=== PATIENT | male | born 1970 | race Caucasian/White ===

== ENCOUNTER 2020-09-09 08:41 | Outpatient (REF) | payer OTHER, SELFPAY ==
[2020-09-09 10:00] LABS: Alanine Aminotransferase 45 U/L (0-40); Albumin Level 4.4 g/dL (3.5-5.0); Alkaline Phosphatase 64 U/L (39-117); Anion Gap 11 (12-20); Aspartate Amino Transferase 31 U/L (5-37); Bilirubin Total 0.6 mg/dL (0.0-1.0); Blood Urea Nitrogen 15 mg/dL (9-16); Calcium 9.6 mg/dL (8.4-10.2); Carbon Dioxide 30 mmol/L (22-29); Chloride 101 mmol/L (96-108); Cholesterol 212 mg/dL; Estimated Glomerular Filt Rate > 60; Glucose Fasting 165 mg/dL (60-99); HDL Cholesterol 40 mg/dL; LDL Cholesterol Calculated 124 mg/dl; Potassium 4.4 mmol/L (3.3-5.1); Sodium 138 mmol/L (135-145); Total Protein 7.6 g/dL (6.5-8.0); Triglycerides 242 mg/dL
[2020-09-09 10:26] LABS: Creatinine Urine 141.49 mg/dL; Microalbum/Creatinine Ratio Ur 4.9 ug/mg cr
[2020-09-19 12:36] LABS: Vitamin D 25-OH, D2 <4 ng/mL; Vitamin D 25-OH, D3 19 ng/mL; Vitamin D 25-OH, Total 19 ng/mL (30-100)
== END 2020-09-09 08:42 | disposition home or self-care (01) ==
LOC: HO.LAB 08:41
PROVIDERS: PCP Internal Medicine; Visit Provider Internal Medicine
DX: E11.65 Type 2 diabetes mellitus with hyperglycemia (principal); E11.9 Type 2 diabetes mellitus without complications; E55.9 Vitamin D deficiency, unspecified
CPT/HCPCS: 36415; 80053; 80061; 82043; 82306

== ENCOUNTER 2021-05-30 07:49 | Outpatient (REF) | payer OTHER, SELFPAY ==
[2021-05-30 08:06] LABS: MANUAL DIFF FLAG NO
[2021-05-30 08:39] LABS: Basophils Percent Auto 0.2 % (0-2); Eosinophils Absolute Auto 0.4 X10*3/uL (0.0-0.4); Eosinophils Percent Auto 6.3 % (0-4); Hematocrit 42.7 % (42.0-52.0); Hemoglobin 13.2 g/dl (14.0-18.0); Imm Gran Abs Auto 0.02 X10*3/uL (0.00-0.03); Imm Gran Pct Auto 0.3 % (0.0-0.4); Lymphocytes Absolute Auto 1.9 X10*3/uL (1.2-4.9); Lymphocytes Percent Auto 30.3 % (20-40); Mean Corpuscular HGB Conc 30.9 g/dl (31.0-36.0); Mean Corpuscular Volume 80.9 fL (80.0-98.0); Mean Platelet Volume 10.1 fL (9.4-12.4); Monocytes Absolute Auto 0.4 X10*3/uL (0.1-1.2); Monocytes Percent Auto 6.9 % (2-11); Neutrophils Absolute Auto 3.6 x10*3/uL (2.0-8.3); Platelet Count 255 X10*3/uL (160-400); Red Blood Count 5.28 X10*6/uL (4.60-5.80); Red Cell Distribution Width 13.7 % (11.0-16.0); White Blood Count 6.3 X10*3/uL (4.8-10.8)
[2021-05-30 08:57] LABS: Estimated Average Glucose 154 mg/dL
[2021-05-30 09:06] LABS: Alanine Aminotransferase 24 U/L (0-40); Albumin Level 4.4 g/dL (3.5-5.0); Alkaline Phosphatase 64 U/L (39-117); Anion Gap 14 (12-20); Aspartate Amino Transferase 22 U/L (5-37); Bilirubin Total 0.5 mg/dL (0.0-1.0); Blood Urea Nitrogen 13 mg/dL (9-16); Calcium 9.6 mg/dL (8.4-10.2); Carbon Dioxide 26 mmol/L (22-29); Chloride 103 mmol/L (96-108); Cholesterol 144 mg/dL; Estimated Glomerular Filt Rate > 60; Glucose Fasting 161 mg/dL (60-99); HDL Cholesterol 38 mg/dL; LDL Cholesterol Calculated 83 mg/dl; Sodium 139 mmol/L (135-145); Total Protein 7.5 g/dL (6.5-8.0); Triglycerides 118 mg/dL
[2021-05-30 09:08] LABS: Creatinine Urine 295.68 mg/dL
[2021-06-02 15:01] LABS: Vitamin D 25-OH, D2 <4 ng/mL; Vitamin D 25-OH, D3 19 ng/mL; Vitamin D 25-OH, Total 19 ng/mL (30-100)
== END 2021-05-30 07:50 | disposition home or self-care (01) ==
LOC: HO.LAB 07:49
PROVIDERS: Visit Provider Internal Medicine
DX: D64.9 Anemia, unspecified (principal); K21.9 Gastro-esophageal reflux disease without esophagitis; E11.40 Type 2 diabetes mellitus with diabetic neuropathy, unspecified; E11.65 Type 2 diabetes mellitus with hyperglycemia; E55.9 Vitamin D deficiency, unspecified; E78.5 Hyperlipidemia, unspecified
CPT/HCPCS: 36415; 80053; 80061; 82043; 82306; 83036; 85025

== ENCOUNTER 2022-03-11 09:22 | Outpatient (REF) | payer OTHER, SELFPAY ==
[2022-03-11 10:55] LABS: Alanine Aminotransferase 37 U/L (0-40); Albumin Level 4.4 g/dL (3.5-5.0); Alkaline Phosphatase 57 U/L (39-117); Anion Gap 15 (12-20); Aspartate Amino Transferase 35 U/L (5-37); Bilirubin Total 0.5 mg/dL (0.0-1.0); Blood Urea Nitrogen 15 mg/dL (9-16); Calcium 9.2 mg/dL (8.4-10.2); Carbon Dioxide 26 mmol/L (22-29); Chloride 102 mmol/L (96-108); Cholesterol 140 mg/dL; Estimated Glomerular Filt Rate > 60; Glucose Fasting 129 mg/dL (60-99); HDL Cholesterol 36 mg/dL; LDL Cholesterol Calculated 83 mg/dl; Potassium 4.1 mmol/L (3.3-5.1); Sodium 139 mmol/L (135-145); Total Protein 7.5 g/dL (6.5-8.0); Triglycerides 106 mg/dL
[2022-03-11 10:56] LABS: Creatinine Urine 148.42 mg/dL; Microalbum/Creatinine Ratio Ur 5.3 ug/mg cr
[2022-03-11 11:18] LABS: Vitamin D 25-OH Total 22.9 ng/mL (>30)
== END 2022-03-11 09:23 | disposition home or self-care (01) ==
LOC: HO.LAB 09:22
PROVIDERS: PCP Internal Medicine; Visit Provider Internal Medicine
DX: E11.65 Type 2 diabetes mellitus with hyperglycemia (principal); E78.5 Hyperlipidemia, unspecified; E55.9 Vitamin D deficiency, unspecified
CPT/HCPCS: 36415; 80053; 80061; 82043; 82306

== ENCOUNTER 2022-03-22 09:28 | Outpatient (REF) | payer OTHER, SELFPAY ==
--- NOTE | ~2022-03-22 | US_ITS ---
EXAMINATION: US ABDOMEN LIMITED CLINICAL INFORMATION: Umbilical hernia without obstruction or gangrene. COMPARISON: None TECHNIQUE: Real-time imaging of the umbilical region and the right and left upper quadrants of the abdomen in the areas of palpable abnormality indicated by the patient. FINDINGS: There is a question of a small umbilical hernia containing fat. This is solid and hypoechoic and measures 10 x 10 x 6 mm. There are other hyperechoic solid areas in the right upper and left upper abdominal wall indicated as palpable abnormalities by the patient questionable for small lipomas. Largest measures 1.2 x 1.1 x 0.6 cm in the left upper quadrant. US/US abdomen limited IMPRESSION: Question small umbilical hernia containing fat. Additional small hyperechoic soft tissue lesions in the bilateral upper abdominal wall probably representing small lipomas.
== END 2022-03-22 09:29 | disposition home or self-care (01) ==
LOC: HO.US 09:28
PROVIDERS: Visit Provider Internal Medicine
DX: K42.9 Umbilical hernia without obstruction or gangrene (principal)
CPT/HCPCS: 76705

== ENCOUNTER 2022-09-22 09:04 | Outpatient (REF) | payer OTHER, SELFPAY ==
[2022-09-22 09:21] LABS: MANUAL DIFF FLAG NO
[2022-09-22 09:32] LABS: Basophils Percent Auto 0.6 % (0-2); Eosinophils Absolute Auto 0.3 X10*3/uL (0.0-0.4); Eosinophils Percent Auto 3.7 % (0-4); Hematocrit 42.5 % (42.0-52.0); Hemoglobin 13.2 g/dl (14.0-18.0); Imm Gran Abs Auto 0.01 X10*3/uL (0.00-0.03); Imm Gran Pct Auto 0.1 % (0.0-0.4); Lymphocytes Absolute Auto 2.4 X10*3/uL (1.2-4.9); Lymphocytes Percent Auto 35.8 % (20-40); Mean Corpuscular HGB Conc 31.1 g/dl (31.0-36.0); Mean Corpuscular Hemoglobin 24.6 pg (27.0-33.0); Mean Corpuscular Volume 79.3 fL (80.0-98.0); Mean Platelet Volume 9.8 fL (9.4-12.4); Monocytes Absolute Auto 0.6 X10*3/uL (0.1-1.2); Monocytes Percent Auto 8.2 % (2-11); Neutrophils Absolute Auto 3.5 x10*3/uL (2.0-8.3); Neutrophils Percent Auto 51.6 % (45-73); Platelet Count 242 X10*3/uL (160-400); Red Blood Count 5.36 X10*6/uL (4.60-5.80); Red Cell Distribution Width 13.8 % (11.0-16.0); White Blood Count 6.7 X10*3/uL (4.8-10.8)
[2022-09-22 09:58] LABS: Alanine Aminotransferase 31 U/L (0-40); Albumin Level 4.4 g/dL (3.5-5.0); Alkaline Phosphatase 57 U/L (39-117); Anion Gap 12 (12-20); Aspartate Amino Transferase 30 U/L (5-37); Bilirubin Total 0.8 mg/dL (0.0-1.0); Blood Urea Nitrogen 15 mg/dL (9-16); Calcium 9.5 mg/dL (8.4-10.2); Carbon Dioxide 29 mmol/L (22-29); Chloride 103 mmol/L (96-108); Cholesterol 127 mg/dL; Estimated Glomerular Filt Rate > 60; Glucose Fasting 139 mg/dL (60-99); HDL Cholesterol 36 mg/dL; Iron 80 mcg/dL (45-160); LDL Cholesterol Calculated 71 mg/dl; Percent Iron Saturation 29 % (15-50); Potassium 4.4 mmol/L (3.3-5.1); Sodium 140 mmol/L (135-145); Total Iron Binding Capacity 276 mcg/dL (228-428); Total Protein 7.4 g/dL (6.5-8.0); Triglycerides 101 mg/dL; Unsaturated Iron Binding 196 ug/dL
[2022-09-22 12:03] LABS: Microalbum/Creatinine Ratio Ur 4.8 ug/mg cr
[2022-09-28 23:44] LABS: Vitamin D 25-OH, D2 <4 ng/mL; Vitamin D 25-OH, D3 19 ng/mL; Vitamin D 25-OH, Total 19 ng/mL (30-100)
== END 2022-09-22 09:05 | disposition home or self-care (01) ==
LOC: HO.LAB 09:04
PROVIDERS: PCP Internal Medicine; Visit Provider Internal Medicine
DX: E11.9 Type 2 diabetes mellitus without complications (principal); E55.9 Vitamin D deficiency, unspecified; E78.2 Mixed hyperlipidemia; D64.9 Anemia, unspecified
CPT/HCPCS: 36415; 80053; 80061; 82043; 82306; 83540; 85025

== ENCOUNTER 2023-02-28 14:47 | Outpatient (AMB) | payer OTHER, SELFPAY ==
--- NOTE | 2023-02-28 15:05 | MHC.PC.OV ---
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 Required: No Accompanied by: Self / Same As Patient Allergies atorvastatin Allergy (Intermediate, Verified 02/28/23 15:39) elevated liver enzymes Medication List - Last Reconciled 02/28/23 by Yuly Cueva MD amlodipine 5 mg PO DAILY 90 days blood pressure monitor As directed blood sugar diagnostic (FreeStyle Lite Strips) Use 1 test strip once a day blood-glucose meter (FreeStyle Lite Meter kit) As directed cholecalciferol (vitamin D3) 50 mcg PO DAILY clotrimazole-betamethasone 1-0.05 % 1 appl topical BID PRN 30 days ezetimibe 10 mg PO DAILY 90 days losartan-hydrochlorothiazide 100-12.5 mg 1 tab PO DAILY 90 days metformin 1,000 mg PO BID 90 days omeprazole 40 mg PO DAILY rosuvastatin 40 mg PO DAILY 90 days sitagliptin phosphate 100 mg PO DAILY 30 days Ventolin HFA 90 mcg/actuation (albuterol sulfate) 1 inh inhalation QID PRN 30 days NS Tobacco use date assessed: 10/25/22 Dental Screening Dental Screen Date: 02/28/23 Did you have a dental visit in the last 12 months?: No Did you have a dental problem in the last 6 months where you did not have access to dental care?: No Was dental information given to patient?: Patient has dentist HPI HPI Comments History of Present Illness Details This is a 52-year-old male with diabetes mellitus type 2, hypertension, mixed hyperlipidemia, GERD and mild asthma that comes today for follow-up on his conditions. A1c elevated and he admits not been compliant with medications. Blood pressure stable. Lipid panel will be order and his LDL goal should be less than 70. GERD stable with PPIs. Use rescue inhaler about once a month. He is obese with a BMI of 35 and was advised to diet and exercise to reach BMI goal less than 30. [facility] Medical History Anxiety Diabetes GERD (gastroesophageal reflux disease) HTN (hypertension) Hypovitaminosis D Mild asthma Mixed hyperlipidemia Pain, elbow Seasonal allergies Surgical History History of third molar tooth extraction Family History Father Diabetes Hypertension Mother Hypertension Diabetes Brother Cancer Social History Housing: Apartment Alcohol intake: former Year quit: 2001 Patient Tobacco Use Status: Former Tobacco user Tobacco use type: Cigarette e-Cigarette/Vaping Use: Never Used Second Hand Smoke Exposure: No Substance Use Type: Former Substance User service: No Current occupational status: employed Current occupational exposures/hazards: No Cognitive needs: No Hearing needs: No Vision needs: Yes Questionnaire Thrive Questionnaire Date Thrive assessed: 10/25/22 SCHUYLER-7 AMB Questionnaire SCHUYLER-7 Date SCHUYLER - 7 assessed: 10/25/22 Source: Developed by Drs. Rory Brown, Syeda Herron, Sher Bonilla and colleagues, with an educational gagan from [employer]. Review of Systems Const All systems reviewed & are unremarkable except as noted in HPI and below Eyes Reports no additional complaints, Denies change in vision and Denies other visual disturbances Card Denies chest pain at rest, Denies chest pain with activity, Denies edema, Denies irregular heart rhythm, Denies claudication, Denies dyspnea, Denies dyspnea on exertion, Denies orthopnea, Denies paroxysmal nocturnal dyspnea and Denies slow heart rate Resp Denies cough, Denies dyspnea and Denies dyspnea on exertion GI Denies abdominal pain, Denies change in bowel habits, Denies excessive flatus, Denies nausea and Denies vomiting Denies urinary hesitancy, Denies urinary incontinence and Denies urinary urgency Musc Denies abnormal gait, Denies atrophy, Denies deformity and Denies limited range of motion Skin/Breast Denies bleeding lesions, Denies changing lesions and Denies rash Neuro Denies abnormal gait and Denies lack of coordination Physical exam (Primary Care) Vital Signs: Last Vital Signs BP 130/80 02/28/23 15:22 BMI result Body Mass Index 35.0 Tobacco/Smoking Status: Tobacco use Status Tobacco use date assessed 10/25/22 02/28/23 15:06 Patient Tobacco Use Status Former Tobacco user 02/28/23 15:06 Tobacco use type Cigarette 02/28/23 15:06 e-Cigarette/Vaping Use Never Used 02/28/23 15:06 Thrive Assessment: Date of Thrive Assessment Date Thrive assessed 10/25/22 02/28/23 15:06 Eyes General: appearance normal, both eyes and all related structures Eyelids: Yes eyelids normal Conjunctivae: conjunctivae normal Neck Neck: Yes normal visual inspection and Yes supple Resp Effort & Inspection: normal respiratory effort Auscultation: clear to auscultation bilaterally Cardio Jugular venous distension: no JVD Rate: regular rate Rhythm: regular rhythm Heart sounds: S1 normal heart sound present and S2 normal heart sound present Extrem General: Yes full ROM Results AMB Hemoglobin A1c AMB Hemoglobin A1c 8.4 % Last Edit by HIRO Batista on 02/28/23 15:30 Results Reviewed Results Reviewed: Laboratory Last Values Hgb A1c (Clinic) 8.4 % (4.0-6.0) H 02/28/23 15:04 Assessment and Plan Assessment & Plan (1) Diabetes: Comment: fbs usually 150-170 Code(s): E11.9 - Type 2 diabetes mellitus without complications Qualifiers: Diabetes mellitus type: type 2 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 A1c goal is equal or less than 7%. (2) HTN (hypertension): Code(s): I10 - Essential (primary) hypertension Qualifiers: Hypertension type: essential hypertension Qualified Code(s): I10 - Essential (primary) hypertension Plan: Continue amlodipine and losartan-hydrochlorothiazide. Blood pressure goal is equal or less than 130/80. (3) Mixed hyperlipidemia: Code(s): E78.2 - Mixed hyperlipidemia Plan: Continue statins and Zetia. (4) Mild asthma: Code(s): J45.909 - Unspecified asthma, uncomplicated Qualifiers: Asthma persistence: persistent Asthma complication type: uncomplicated Qualified Code(s): J45.30 - Mild persistent asthma, uncomplicated Plan: Use rescue inhaler as needed. (5) GERD (gastroesophageal reflux disease): Code(s): K21.9 - Gastro-esophageal reflux disease without esophagitis Qualifiers: Esophagitis presence: esophagitis presence not specified Qualified Code(s): K21.9 - Gastro-esophageal reflux disease without esophagitis Plan: Continue PPIs. Orders: Orders Vitamin D 25-OH Total 5 Months E55.9 - Vitamin D deficiency, unspecified Lipid Panel 5 Months E78.5 - Hyperlipidemia, unspecified Microalbumin, Random (w Creat) 5 Months E11.9 - Type 2 diabetes mellitus without complications Comprehensive [place]. Panel Fast 5 Months E11.65 - Type 2 diabetes mellitus with hyperglycemia AMB Hemoglobin A1c Today E11.9 - Type 2 diabetes mellitus without complications Referrals Ophthalmology Referral E11.9 - Type 2 diabetes mellitus without complications Podiatry Referral E11.9 - Type 2 diabetes mellitus without complications Medications: New clotrimazole-betamethasone 1-0.05 % 1 appl topical BID 15 grams 1RF 2 weeks Coding Level of Care Code Est Pt Level 4 (94721) Diagnoses Diabetes E11.65 Diabetes mellitus type: type 2 Diabetes mellitus nursing home insulin use: without predatory animal exterminator use Diabetes mellitus complication status: with hyperglycemia HTN (hypertension) I10 Hypertension type: essential hypertension Mixed hyperlipidemia E78.2 Mild asthma J45.30 Asthma persistence: persistent Asthma complication type: uncomplicated GERD (gastroesophageal reflux disease) K21.9 Esophagitis presence: esophagitis presence not specified Time Spent (min) 24
[2023-02-28 15:22] VITALS: BP 130/80; BMI 35.0
== END 2023-02-28 15:45 | disposition home or self-care (01) ==
PROVIDERS: PCP Internal Medicine; Visit Provider Internal Medicine
DX: E11.65 Type 2 diabetes mellitus with hyperglycemia (principal); I10 Essential (primary) hypertension; J45.30 Mild persistent asthma, uncomplicated; K21.9 Gastro-esophageal reflux disease without esophagitis; E78.2 Mixed hyperlipidemia
CPT/HCPCS: 83036; 99214

== ENCOUNTER 2024-03-12 15:51 | Outpatient (AMB) | payer OTHER, SELFPAY ==
--- NOTE | 2024-03-12 15:53 | MHC.PC.OV ---
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 Accompanied by: Self / Same As Patient Allergies atorvastatin Allergy (Intermediate, Verified 03/12/24 16:18) elevated liver enzymes Medication List - Last Reconciled 03/12/24 by Yuly Cueva MD amlodipine 5 mg PO DAILY 90 days blood pressure monitor As directed blood sugar diagnostic (FreeStyle Lite Strips) Use 1 test strip once a day blood-glucose meter (FreeStyle Lite Meter kit) As directed cholecalciferol (vitamin D3) 50 mcg PO DAILY clotrimazole-betamethasone 1-0.05 % 1 appl topical BID PRN 30 days ezetimibe 10 mg PO DAILY 90 days losartan-hydrochlorothiazide 100-12.5 mg 1 tab PO DAILY 90 days metformin 1,000 mg PO BID 90 days omeprazole 40 mg PO DAILY rosuvastatin 40 mg PO DAILY 90 days sitagliptin phosphate 100 mg PO DAILY 30 days Ventolin HFA 90 mcg/actuation (albuterol sulfate) 1 inh inhalation QID PRN 30 days NS Tobacco use date assessed: 03/12/24 Dental Screening Dental Screen Date: 03/12/24 Did you have a dental visit in the last 12 months?: Yes Did you have a dental problem in the last 6 months where you did not have access to dental care?: No Was dental information given to patient?: Patient has dentist HPI HPI Comments History of Present Illness Details This is a 53-year-old male with diabetes mellitus type 2 that comes for his physical exam. A1c not on goal and I will change Rebecca Avalos. Has diabetic eye exam appointment next week. Has been referred to colonoscopy multiple times and no show and I will refer him again. No chest pain or shortness on breath. Has mild major depression and declines any treatment. [facility] Medical History (Updated 03/12/24 @ 18:49 by Yuly Cueva MD) Mixed hyperlipidemia Mild asthma Hypovitaminosis D Seasonal allergies Anxiety Pain, elbow GERD (gastroesophageal reflux disease) Diabetes HTN (hypertension) Surgical History History of third molar tooth extraction Family History Father Diabetes Hypertension Mother Hypertension Diabetes Brother Cancer Social History Housing: Apartment Alcohol intake: former Year quit: 2001 Patient Tobacco Use Status: Former Tobacco user Tobacco use type: Cigarette e-Cigarette/Vaping Use: Never Used Second Hand Smoke Exposure: No Substance Use Type: Former Substance User service: No Current occupational status: employed Current occupational exposures/hazards: No Cognitive needs: No Hearing needs: No Vision needs: Yes Questionnaire PHQ-9 Over the last 2 weeks, how often have you been bothered by any of the following problems? 1. Little interest or pleasure in doing things: several days 2. Feeling down, depressed, or hopeless: not at all 3. Trouble falling or staying asleep, or sleeping too much: not at all 4. Feeling tired or having little energy: nearly every day 5. Poor appetite or overeating: not at all 6. Feeling bad about yourself - or that you are a failure or have let yourself or your family down: not at all 7. Trouble concentrating on things, such as reading the newspaper or watching television: not at all 8. Moving or speaking so slowly that other people could have noticed. Or the opposite - being so fidgety or restless that you have been moving around a lot more than usual: not at all 9. Thoughts that you would be better off or of hurting yourself in some way: not at all Total score: 4 Depression Screening Interpretation: Positive Depression Screening Follow-up: Existing condition, Follow-up Visit Requested and Declines treatment Depression Screening Done: Yes 66472 - PHQ-9 Billing: Yes Source: Developed by Drs. Rory Brown, Syeda Herron, Sher Bonilla and colleagues, with an educational gagan from [employer]. Thrive Questionnaire Date Thrive assessed: 03/12/24 I am a: Patient What is your living situation today?: I have a steady place to live Within the past 12 months, did the food you bought not last and you didn't have the money to get more?: Never true Within the past 12 months, did you worry whether your food would run out before you got money to buy more?: Never true Do you have trouble paying for medicines?: I choose not to answer this question Do you have trouble getting transportation to medical appointments?: No Do you have trouble paying your heating and electricity bill?: No Do you have trouble taking care of your child, family member or friend?: No Do you have trouble with day-to-day activities such as bathing, preparing meals, shopping, managing finances, etc.?: No Are you currently unemployed and looking for a job?: No Are you interested in more education?: No Please select the resources that you would like help with: Paying for medicine Currently or been in a relationship where the following occur: No concerns reported THRIVE Score: 0 AUDIT C Alcohol Use Questionnaire (AUDIT-C) 1. How often do you have a drink containing alcohol?: Never Total Score: 0 Score Reviewed/Action Taken: No SCHUYLER-7 AMB Questionnaire SCHUYLER-7 Date SCHUYLER - 7 assessed: 03/12/24 Feeling nervous, anxious, or on edge: 1 = Several days Not being able to stop or control worryin = Several days Worrying too much about different things: 1 = Several days Trouble relaxin = Not at all Being so restless that it is hard to sit still: 0 = Not at all Becoming easily annoyed or irritable: 1 = Several days Feeling afraid as if something awful might happen: 1 = Several days Total SCHUYLER-7 score (0-4 normal; 5-9 mild; 10-14 moderate; 15-21 severe): 5 Source: Developed by Drs. Rory Brown, Syeda Herron, Sher Bonilla and colleagues, with an educational gagan from [employer]. SCHUYLER-7 Assessment Billing SCHUYLER-7 Assessment Tool: SCHUYLER-7 Assessment 52266 Review of Systems Const All systems reviewed & are unremarkable except as noted in HPI and below Card Denies chest pain at rest, Denies chest pain with activity, Denies edema, Denies irregular heart rhythm, Denies claudication, Denies dyspnea, Denies dyspnea on exertion, Denies orthopnea, Denies paroxysmal nocturnal dyspnea and Denies slow heart rate Resp Denies cough, Denies dyspnea and Denies dyspnea on exertion GI Denies abdominal pain, Denies change in bowel habits, Denies excessive flatus, Denies nausea and Denies vomiting Neuro Denies lack of coordination Physical exam (Primary Care) Vital Signs: Last Vital Signs BP 134/86 03/12/24 15:59 BMI result Body Mass Index 34.0 BMI Assessment/Plan discussion: High BMI High, discussed plan: lifestyle, weight reduction, dietary and physical activity Tobacco/Smoking Status: Tobacco use Status Tobacco use date assessed 03/12/24 03/12/24 16:02 Patient Tobacco Use Status Former Tobacco user 03/12/24 15:56 Tobacco use type Cigarette 03/12/24 15:56 e-Cigarette/Vaping Use Never Used 03/12/24 15:56 PHQ-9: PHQ-9 Score PHQ-9: Total score 4 03/12/24 16:30 Depression Screening Interpretation: Positive Depression Screening Follow-up: Existing condition, Follow-up Visit Requested and Declines treatment Thrive Assessment: Date of Thrive Assessment Date Thrive assessed 03/12/24 03/12/24 15:56 Currently or been in a relationship where the following occur: No concerns reported Const Orientation/consciousness: patient oriented x3 HENMT Head: Yes normal to inspection, Yes normocephalic and Yes atraumatic Ears: external ears normal Eyes General: appearance normal, both eyes and all related structures Eyelids: Yes eyelids normal Conjunctivae: conjunctivae normal Neck Neck: Yes normal visual inspection and Yes supple Resp Effort & Inspection: normal respiratory effort Auscultation: clear to auscultation bilaterally Cardio Jugular venous distension: no JVD Rate: regular rate Rhythm: regular rhythm Heart sounds: S1 normal heart sound present and S2 normal heart sound present GI Inspection: Yes normal to inspection Palpation (GI): Soft to palpation and nontender Auscultation: normal bowel sounds Skin General skin exam: no rashes or lesions noted Neuro General: patient oriented x3 and no focal motor deficits Extrem General: Yes full ROM Psych Appearance: grossly normal Results AMB Hemoglobin A1c AMB Hemoglobin A1c 9.2 % Last Edit by HIRO Batista on 03/12/24 16:07 Results Reviewed Results Reviewed: Laboratory Last Values Hgb A1c (Clinic) 9.2 % (4.0-6.0) H 03/12/24 16:07 Assessment and Plan Assessment & Plan (1) Physical exam: Code(s): Z00.00 - Encounter for general adult medical examination without abnormal findings Plan: Repeat in a year. (2) Diabetes: Comment: fbs usually 150-170 Code(s): E11.9 - Type 2 diabetes mellitus without complications Qualifiers: Diabetes mellitus type: type 2 Diabetes mellitus skilled nursing insulin use: without certified home health aide use Diabetes mellitus complication status: with hyperglycemia Qualified Code(s): E11.65 - Type 2 diabetes mellitus with hyperglycemia Plan: Continue metformin. Discontinue Januvia. Start Trulicity. A1c goal is equal or less than 7%. (3) Mild major depression: Code(s): F32.0 - Major depressive disorder, single episode, mild Plan: Declines treatment. Orders: Orders Lipid Panel Today E78.5 - Hyperlipidemia, unspecified Comprehensive [place]. Panel Fast Today E78.2 - Mixed hyperlipidemia Microalbumin, Random (w Creat) Today E11.9 - Type 2 diabetes mellitus without complications Vitamin D 25-OH Total Today E55.9 - Vitamin D deficiency, unspecified AMB Hemoglobin A1c Today E11.65 - Type 2 diabetes mellitus with hyperglycemia Referrals Open Access Screening Colonoscopy Referral Z12.11 - Encounter for screening for malignant neoplasm of colon Podiatry Referral E11.65 - Type 2 diabetes mellitus with hyperglycemia Medications: New dulaglutide (Trulicity) 0.75 mg (0.5 mL) subcut QWEEK 6.5 mL 0RF 90 days E11.65 - Type 2 diabetes mellitus with hyperglycemia Coding Level of Care Code Est Pt Prev Care 40-64y(23822) Diagnoses Physical exam Z00.00 Type 2 diabetes mellitus with hyperglycemia, without long-term current use of insulin E11.65 Diabetes mellitus type: type 2 Diabetes mellitus skilled nursing insulin use: without certified home health aide use Diabetes mellitus complication status: with hyperglycemia Mild major depression F32.0 Additional Codes SCHUYLER-7 Assessment Billing - SCHUYLER-7 Assessment Tool: SCHUYLER-7 Assessment [id number] ([id number]) Time Spent (min) 31
[2024-03-12 15:59] VITALS: BP 134/86; BMI 34.0
== END 2024-03-12 16:33 | disposition home or self-care (01) ==
PROVIDERS: PCP Internal Medicine; Visit Provider Internal Medicine
DX: Z00.00 Encounter for general adult medical examination without abnormal findings (principal); E11.65 Type 2 diabetes mellitus with hyperglycemia; F32.0 Major depressive disorder, single episode, mild
CPT/HCPCS: 83036; 99396

== ENCOUNTER 2024-03-21 06:59 | Outpatient (REF) | payer OTHER, SELFPAY ==
[2024-03-21 08:34] LABS: Microalbum/Creatinine Ratio Ur 4.9 ug/mg cr (<30)
[2024-03-21 08:34] LABS: Alanine Aminotransferase 39 U/L (0-40); Albumin Level 4.2 g/dL (3.5-5.0); Alkaline Phosphatase 59 U/L (39-117); Anion Gap 10 (12-20); Aspartate Amino Transferase 38 U/L (5-37); Bilirubin Total 0.4 mg/dL (0.0-1.0); Blood Urea Nitrogen 11 mg/dL (9-16); Calcium 9.4 mg/dL (8.4-10.2); Carbon Dioxide 29 mmol/L (22-29); Chloride 105 mmol/L (96-108); Cholesterol 107 mg/dL (<200); Estimated Glomerular Filt Rate > 60; Glucose Fasting 178 mg/dL (60-99); HDL Cholesterol 33 mg/dL (>40); LDL Cholesterol Calculated 60 mg/dL (<100); Potassium 3.5 mmol/L (3.3-5.1); Sodium 140 mmol/L (135-145); Total Protein 7.4 g/dL (6.5-8.0); Triglycerides 73 mg/dL (<150)
[2024-03-21 08:55] LABS: Vitamin D 25-OH Total 28.6 ng/mL (>30)
== END 2024-03-21 07:00 | disposition home or self-care (01) ==
LOC: HO.LAB 06:59
PROVIDERS: PCP Internal Medicine; Visit Provider Internal Medicine
DX: E11.65 Type 2 diabetes mellitus with hyperglycemia (principal); E11.9 Type 2 diabetes mellitus without complications; E55.9 Vitamin D deficiency, unspecified; E78.5 Hyperlipidemia, unspecified
CPT/HCPCS: 36415; 80053; 80061; 82043; 82306; 82570

== ENCOUNTER 2024-08-01 07:39 | Outpatient (REF) | payer OTHER, SELFPAY ==
--- OUTSIDE RECORDS SUMMARY | 2024-08-01 07:42 | XMS_ITS | Encounter Summary ---
Author Organization [facility] Address [address] [place] [address] Care Team Providers Care Doctor Of Chiropractic Name Role Phone Yuly Cueva MD Primary Care Provider Encounter Details Date Type Department Care Team (Late st Contact Info) Description 07/18/2024 Telephone Orthopedic Surgery - [place] [address] [place] [address] Rylie Singh MA Social History Tobacco Use Types Packs/Day Years Used Date Smoking Tobacco: Never Assessed Sex and Gender Information Value Date Recorded Sex Assigned at Not on file Gender Identity Not on file Sexual Orientation Not on file documented as of this encounter Progress Notes * Rylie Singh MA - 07/18/2024 8:03 AM EST Faxed to [facility] 6 pages on 07/07/24 documented in this encounter Plan of Treatment Not on file documented as of this encounter Visit Diagnoses Not on filedocumented in this encounter Care Teams Doctor Of Chiropractic Relationship Specialty Start Date End Date Yuly Cueva MD [address] [place] [address] , [address] Physician Associ D/B/A: [facility] MARIANNA Jeong PCP - General 03/14/24 documented as of this encounter
--- OUTSIDE RECORDS SUMMARY | 2024-08-01 07:42 | XMS_ITS | Clinical Summary ---
Author Organization 175 [facility] Address 175 [place] [address] Phone Care Team Providers Care Narrative Writer Name Role Phone Yuly Cueva MD Primary Care Provider [phone] Allergies No known active allergies Medications Medication Sig Dispensed Refills Start Date End Date Status meloxicam (Mobic) 15 mg tablet Take 1 tablet (15 mg total) by mouth 1 (one) time each day. 30 tablet 06/16/2024 07/16/2024 Encounters Date Type Department Care Team Description 07/18/2024 Telephone Orthopedic Surgery [place] [address] [phone] Rylie Singh [place] 07/01/2024 2:00 PM EST Office Visit Orthopedic Surgery [place] [address] [phone] Angel Huizar DPM Controlled type 2 diabetes mellitus with diabetic polyneuropathy, without long-term current use of insulin (CMS/HCC) (Primary Dx); Neuropathy; Onychomycosis; Callus; Localized edema; Hammertoes of both feet; Metatarsalgia of right foot; Interdigital neuroma of right foot 06/16/2024 1:45 PM EST Consult Orthopedic [place] [phone] [phone] Angel Huizar DPM Controlled type 2 diabetes with neuropathy (CMS/HCC) (Primary Dx); Hammertoes of both feet; Metatarsalgia of right foot; Interdigital neuroma of right foot from Last 3 Months Social History Tobacco Use Types Packs/Day Years Used Date Smoking Tobacco: Never Assessed Sex and Gender Information Value Date Recorded Sex Assigned at Not on file Gender Identity Not on file Sexual Orientation Not on file Last Filed Vital Signs Vital Sign Reading Time Taken Comments Blood Pressure - - Pulse - - Temperature - - Respiratory Rate - - Oxygen Saturation - - Inhaled Oxygen Concentration - - Weight 99.8 kg (220 lb) 07/01/2024 1:54 PM EST Height 175.3 cm (5' 9 ) 06/16/2024 1:42 PM EST Body Mass Index 32.49 06/16/2024 1:42 PM EST Plan of Treatment Health Maintenance Due Date Last Done Comments Diabetes: Annual GFR (Glomer ular Filtration Rate) 1968 Pneumococcal Vaccine: Pediat rics (0 to 5 Years) and At-Risk Patients (6 to 64 Years) (1 of 2 - PCV) 1974 Diabetes: Annual Foot Exam 1978 Diabetes: Annual Retina Eye Exam 1978 DTaP,Tdap,and Td Vaccines (1 - Tdap) 1987 Hepatitis B Vaccines (1 of 3 - 19+ 3-dose series) 1987 Zoster Vaccines (1 of 2) 2018 COVID-19 Vaccine (2023-2 5 season) 2024 Influenza Vaccine (#1) 2024 Cholesterol Screening (Lipid Panel) 04/11/2024 Colorectal Cancer Screening: Colonoscopy 04/11/2024 Depression Screening 04/11/2024 HIV Screening 04/11/2024 Hepatitis C Screening 04/11/2024 Social Influencers of Health Screening 04/11/2024 Diabetes: Annual Urine Albumin-Creatinine Ratio (uACR) 06/16/2024 Diabetes: Blood Sugar Contro l Test (HGBA1C) 06/16/2024 HIB Vaccines Aged Out No longer eligi ble based on patient's age to complete this topic HPV Vaccines Aged Out No longer eligi ble based on patient's age to complete this topic Hepatitis A Vaccines Aged Out No long er eligible based on patient's age to complete this topic IPV Vaccines Aged Out No longer eligi ble based on patient's age to complete this topic MMR Vaccines Aged Out No longer eligi ble based on patient's age to complete this topic Meningococcal ACWY Vaccine Aged Out N o longer eligible based on patient's age to complete this topic RSV Immunization Patients Un duy 20 months Aged Out No longer eligible b ased on patient's age to complete this topic Varicella Vaccines Aged Out No longer eligible based on patient's age to complete this topic Care Teams Narrative Writer Relationship Specialty Start Date End Date Yuly Cueva MD [address] [place] [address] , [address] [facility] D/B/A: [facility] [place], [place] PCP - General 03/14/24
[2024-08-01 08:58] LABS: Alanine Aminotransferase 36 U/L (0-40); Albumin Level 4.3 g/dL (3.5-5.0); Alkaline Phosphatase 52 U/L (39-117); Anion Gap 10 (12-20); Aspartate Amino Transferase 37 U/L (5-37); Bilirubin Total 0.5 mg/dL (0.0-1.0); Blood Urea Nitrogen 9 mg/dL (9-16); Calcium 9.5 mg/dL (8.4-10.2); Carbon Dioxide 29 mmol/L (22-29); Chloride 105 mmol/L (96-108); Cholesterol 120 mg/dL (<200); Estimated Glomerular Filt Rate > 60; Glucose Fasting 157 mg/dL (60-99); HDL Cholesterol 39 mg/dL (>40); LDL Cholesterol Calculated 58 mg/dL (<100); Potassium 4.2 mmol/L (3.3-5.1); Sodium 140 mmol/L (135-145); Total Protein 7.5 g/dL (6.5-8.0); Triglycerides 117 mg/dL (<150)
[2024-08-01 09:01] LABS: Creatinine Urine 313.83 mg/dL
[2024-08-01 09:18] LABS: Vitamin D 25-OH Total 31.7 ng/mL (>30)
== END 2024-08-01 07:40 | disposition home or self-care (01) ==
LOC: HO.LAB 07:39
PROVIDERS: PCP Internal Medicine; Visit Provider Internal Medicine
DX: E78.2 Mixed hyperlipidemia (principal); E55.9 Vitamin D deficiency, unspecified; E78.5 Hyperlipidemia, unspecified; E11.9 Type 2 diabetes mellitus without complications
CPT/HCPCS: 36415; 80053; 80061; 82043; 82306; 82570

== ENCOUNTER 2024-08-04 15:27 | Outpatient (AMB) | payer OTHER, SELFPAY ==
[2024-08-04 15:31] VITALS: BP 120/82; BMI 34.4
--- NOTE | 2024-08-04 15:31 | A.OFFPC_ITS ---
Vital Signs 08/04/24 15:31 Height 5 ft 9 in Weight 233 lb BMI 34.4 BP 120/82 Blood Pressure Location Lt brachial Position Sitting Intake Visit Reasons: DM Intake Note: Patient here for a follow up DM Human Resources Analyst Required: Yes Human Resources Analyst Language: Nuclear Radiation Engineer Name: Yuly Cueva MD Information Interpreted: non-clinical & clinical Accompanied by: Self / Same As Patient Allergies atorvastatin Allergy (Intermediate, Verified 08/04/24 15:40) elevated liver enzymes Medication List - Last Reconciled 08/04/24 by Yuly Cueva MD amlodipine 5 mg PO DAILY 90 days blood pressure monitor As directed blood sugar diagnostic (FreeStyle Lite Strips) Use 1 test strip once a day blood-glucose meter (FreeStyle Lite Meter kit) As directed cholecalciferol (vitamin D3) 50 mcg PO DAILY clotrimazole-betamethasone 1-0.05 % 1 appl topical BID PRN 30 days dulaglutide (Trulicity) 0.75 mg (0.5 mL) subcut QWEEK 90 days ezetimibe 10 mg PO DAILY 90 days losartan-hydrochlorothiazide 100-12.5 mg 1 tab PO DAILY 90 days metformin 1,000 mg PO BID 90 days omeprazole 40 mg PO DAILY rosuvastatin 40 mg PO DAILY 90 days sitagliptin phosphate (Januvia) 100 mg PO DAILY 90 days Ventolin HFA 90 mcg/actuation (albuterol sulfate) 1 inh inhalation QID PRN 30 days NS Tobacco use date assessed: 08/04/24 Dental Screening Dental Screen Date: 08/04/24 Did you have a dental visit in the last 12 months?: No Did you have a dental problem in the last 6 months where you did not have access to dental care?: No Was dental information given to patient?: Patient has dentist HPI HPI Comments History of Present Illness Details The patient is a 54-year-old male presenting with Type 2 Diabetes Mellitus. The patient reports a history of poorly controlled diabetes, with a past A1c value of 11.5%, which reduced to 9.2% in March and currently is at 7.5%. The goal A1c is 7%. The patient mentions previous lifestyle modifications but notes difficulty maintaining these changes due to weight gain, currently documenting a weight of 233pounds. The patient reports previous smoking and alcohol consumption, which have since ceased. There is mention of recent hyperlipidemia management through lifestyle adjustments, showing LDL levels under satisfactory control below 70 mg/dL. The patient also describes right shoulder pain, indicating significant discomfort without movement limitation, and right hip pain, particularly when rising from a seated position. No history of chest pain or dyspnea was reported. Blood pressure also well control with medications and within goal being less than 130/80. He also has mild major depression that has been stable. [facility] Medical History (Updated 08/04/24 @ 15:51 by Yuly Cueva MD) Mixed hyperlipidemia Mild asthma Hypovitaminosis D Seasonal allergies Anxiety Pain, elbow GERD (gastroesophageal reflux disease) Diabetes HTN (hypertension) Surgical History History of third molar tooth extraction Family History Father Diabetes Hypertension Mother Hypertension Diabetes Brother Cancer Social History Housing: Apartment Alcohol intake: former Year quit: 2001 Patient Tobacco Use Status: Former Tobacco user Tobacco use type: Cigarette e-Cigarette/Vaping Use: Never Used Second Hand Smoke Exposure: No Substance Use Type: Former Substance User service: No Current occupational status: employed Current occupational exposures/hazards: No Cognitive needs: No Hearing needs: No Vision needs: Yes Questionnaire PHQ-9 Over the last 2 weeks, how often have you been bothered by any of the following problems? 1. Little interest or pleasure in doing things: not at all 2. Feeling down, depressed, or hopeless: not at all 3. Trouble falling or staying asleep, or sleeping too much: not at all 4. Feeling tired or having little energy: not at all 5. Poor appetite or overeating: not at all 6. Feeling bad about yourself - or that you are a failure or have let yourself or your family down: not at all 7. Trouble concentrating on things, such as reading the newspaper or watching television: not at all 8. Moving or speaking so slowly that other people could have noticed. Or the opposite - being so fidgety or restless that you have been moving around a lot more than usual: not at all 9. Thoughts that you would be better off or of hurting yourself in some way: not at all Total score: 0 Depression Screening Interpretation: Negative Depression Screening Done: Yes 69496 - PHQ-9 Billing: Yes Source: Developed by Drs. Rory Brown, Syeda Herron, Sher Bonilla and colleagues, with an educational gagan from [employer]. Thrive Questionnaire Date Thrive assessed: 08/04/24 I am a: Patient What is your living situation today?: I have a steady place to live Within the past 12 months, did the food you bought not last and you didn't have the money to get more?: Never true Within the past 12 months, did you worry whether your food would run out before you got money to buy more?: Never true Do you have trouble paying for medicines?: No Do you have trouble getting transportation to medical appointments?: No Do you have trouble paying your heating and electricity bill?: No Do you have trouble taking care of your child, family member or friend?: No Do you have trouble with day-to-day activities such as bathing, preparing meals, shopping, managing finances, etc.?: No Are you currently unemployed and looking for a job?: No Are you interested in more education?: No Please select the resources that you would like help with: None Currently or been in a relationship where the following occur: No concerns reported THRIVE Score: 0 AUDIT C Alcohol Use Questionnaire (AUDIT-C) 1. How often do you have a drink containing alcohol?: Never Total Score: 0 Score Reviewed/Action Taken: No SCHUYLER-7 AMB Questionnaire SCHUYLER-7 Date SCHUYLER - 7 assessed: 08/04/24 Feeling nervous, anxious, or on edge: 0 = Not at all Not being able to stop or control worryin = Not at all Worrying too much about different things: 0 = Not at all Trouble relaxin = Not at all Being so restless that it is hard to sit still: 0 = Not at all Becoming easily annoyed or irritable: 0 = Not at all Feeling afraid as if something awful might happen: 0 = Not at all Total SCHUYLER-7 score (0-4 normal; 5-9 mild; 10-14 moderate; 15-21 severe): 0 Source: Developed by Drs. Rory Brown, Syeda Herron, Sher Bonilla and colleagues, with an educational gagan from [employer]. SCHUYLER-7 Assessment Billing SCHUYLER-7 Assessment Tool: SCHUYLER-7 Assessment 67333 Review of Systems Const All systems reviewed & are unremarkable except as noted in HPI and below Card Denies chest pain at rest, Denies chest pain with activity, Denies edema, Denies irregular heart rhythm, Denies claudication, Denies dyspnea, Denies dyspnea on exertion, Denies orthopnea, Denies paroxysmal nocturnal dyspnea and Denies slow heart rate Resp Denies cough, Denies dyspnea and Denies dyspnea on exertion GI Denies abdominal pain, Denies change in bowel habits, Denies excessive flatus, Denies nausea and Denies vomiting Denies urinary hesitancy, Denies urinary incontinence and Denies urinary urgency Musc Denies atrophy, Denies deformity and Denies limited range of motion Skin/Breast Denies bleeding lesions, Denies changing lesions and Denies rash Physical exam (Primary Care) Vital Signs: Last Vital Signs BP 120/82 08/04/24 15:31 BMI result Body Mass Index 34.4 BMI Assessment/Plan discussion: High BMI High, discussed plan: lifestyle, weight reduction, dietary and physical activity Tobacco/Smoking Status: Tobacco use Status Tobacco use date assessed 08/04/24 08/04/24 15:36 Patient Tobacco Use Status Former Tobacco user 08/04/24 15:36 Tobacco use type Cigarette 08/04/24 15:36 e-Cigarette/Vaping Use Never Used 08/04/24 15:36 PHQ-9: PHQ-9 Score PHQ-9: Total score 0 08/04/24 16:13 Depression Screening Interpretation: Negative Thrive Assessment: Date of Thrive Assessment Date Thrive assessed 08/04/24 08/04/24 15:36 Currently or been in a relationship where the following occur: No concerns reported Resp Effort & Inspection: normal respiratory effort Auscultation: clear to auscultation bilaterally Cardio Jugular venous distension: no JVD Rate: regular rate Rhythm: regular rhythm Heart sounds: S1 normal heart sound present and S2 normal heart sound present Extrem General: Yes full ROM Office Procedures Flu Questionnaire Does the patient have a severe egg allergy?: No Results AMB Hemoglobin A1c AMB Hemoglobin A1c 7.5 % Last Edit by HIRO Batista on 08/04/24 15:4 9 Immunizations Fluarix Triv [id number] (PF) 45 mcg (15 mcg x 3)/0.5 mL IM syringe Performing Provider: Yuly Cueva MD [facility] Documented (not given) by: HIRO Batista on 08/04/24 16:14 Reason Not Given: Patient Refused Results Reviewed Results Reviewed: Laboratory Last Values Hgb A1c (Clinic) 7.5 % (4.0-6.0) H 08/04/24 15:29 Coding Level of Care Code Est Pt Level 4 (55769) Complex EM visit Add On G2211 Diagnoses Type 2 diabetes mellitus with hyperglycemia, without long-term current use of insulin E11.65 Diabetes mellitus type: type 2 Diabetes mellitus usp insulin use: without rodent exterminator use Diabetes mellitus complication status: with hyperglycemia Mild major depression F32.0 Right shoulder pain M25.511 Right hip pain M25.551 Mixed hyperlipidemia E78.2 Essential hypertension I10 Hypertension type: essential hypertension Additional Codes SCHUYLER-7 Assessment Billing - SCHUYLER-7 Assessment Tool: SCHUYLER-7 Assessment 42463 ([id number]) PHQ-9 - 84644 - PHQ-9 Billing: Yes ([id number]) Time Spent (min) 22 Assessment & Plan Assessment & Plan (1) Diabetes: Comment: fbs usually 150-170 Code(s): E11.9 - Type 2 diabetes mellitus without complications Category: Medical Qualifiers: Diabetes mellitus type: type 2 Diabetes mellitus rodent exterminator insulin use: without rodent exterminator use Diabetes mellitus complication status: with hyperglycemia Qualified Code(s): E11.65 - Type 2 diabetes mellitus with hyperglycemia (2) Mild major depression: Code(s): F32.0 - Major depressive disorder, single episode, mild Category: Medical (3) Right shoulder pain: Code(s): M25.511 - Pain in right shoulder Category: Medical (4) Right hip pain: Code(s): M25.551 - Pain in right hip Category: Medical (5) Mixed hyperlipidemia: Code(s): E78.2 - Mixed hyperlipidemia Category: Medical (6) HTN (hypertension): Code(s): I10 - Essential (primary) hypertension Category: Medical Qualifiers: Hypertension type: essential hypertension Qualified Code(s): I10 - Essential (primary) hypertension Plan - Type 2 Diabetes Mellitus: Continue monitoring with emphasis on lifestyle intervention. Discussed option to adjust medication, possibly replacing Januvia. - Hyperlipidemia: Maintain current lifestyle modifications to keep LDL at goal. - Obesity, Class I: Emphasize weight reduction through dietary and activity changes. - Musculoskeletal complaints: Shoulder and hip X-rays recommended. Referral to health informatics specialist for further evaluation and potential physical therapy if movement is limited. Patient was informed and verbally consented to the use of an ambient scribe for clinic note documentation during this visit. The patient and I reviewed the current status of his Type 2 Diabetes Mellitus, noting improvement from previous high A1c levels. I discussed the importance of achieving the A1c goal of 7% and potential adjustments to the medication regimen, including the potential addition of Jardiance 10 mg due to its cardioprotective benefits. We discussed maintaining the current approach for hyperlipidemia control due to the favorable LDL levels. Regarding the patient's obesity, I advised a focus on weight reduction strategies. The patient agreed to undergo imaging for the shoulder and right hip pain and is open to potential orthopedic evaluation. The importance of ongoing lifestyle adjustments and periodic re-assessment was emphasized. Orders: Orders AMB Hemoglobin A1c Today E11.65 - Type 2 diabetes mellitus with hyperglycemia XR femur RT 2V Today M89.8X5 - Other specified disorders of bone, thigh Influenza [id number] Immunization Today Z23 - Encounter for immunization XR shoulder RT min 2V Today M25.511 - Pain in right shoulder XR hip RT min 2V Today M25.551 - Pain in right hip Referrals Orthopedics Referral M25.511 - Pain in right shoulder, M89.8X5 - Other specified disorders of bone, thigh Medications: New dulaglutide (Trulicity) 1.5 mg (0.5 mL) subcut QWEEK 2 mL 0RF 4 weeks empagliflozin (Jardiance) 10 mg PO DAILY 90 tabs 0RF 90 days Discontinued dulaglutide (Trulicity) Discontinued Reason: Patient Completed Course 0.75 mg (0.5 mL) subcut QWEEK 90 days 6.5 mL 0RF E11.65 - Type 2 diabetes mellitus with hyperglycemia sitagliptin phosphate (Januvia) Discontinued Reason: Patient Completed Course 100 mg PO DAILY 90 days 90 tabs 3RF Patient Instructions: - Continue current diabetes and lipid management regimen. - Pursue dietary and exercise modifications to aid weight loss. - Schedule X-rays for shoulder and right hip as soon as possible. - Consider follow-up with health informatics specialist for persistent musculoskeletal pain. - Return for follow-up if symptoms worsen or do not improve.
--- OUTSIDE RECORDS SUMMARY | 2024-08-04 16:52 | XMS_ITS | Encounter Summary ---
Author Organization [facility] Address [address] [place] [address] Care Team Providers Care Carbon Cutter Name Role Phone Yuly Cueva MD Primary Care Provider [phone] Encounter Details Date Type Department Care Team (Late st Contact Info) Description 07/18/2024 Telephone Orthopedic Surgery - [place] [address] [facility] [address] [place] [address] Rylie Singh [place] Social History Tobacco Use Types Packs/Day Years Used Date Smoking Tobacco: Never Assessed Sex and Gender Information Value Date Recorded Sex Assigned at Not on file Gender Identity Not on file Sexual Orientation Not on file documented as of this encounter Progress Notes * Rylie Singh MA - 07/18/2024 8:03 AM EST Faxed to [facility] 6 pages on 07/07/24 documented in this encounter Plan of Treatment Not on file documented as of this encounter Visit Diagnoses Not on filedocumented in this encounter Care Teams Carbon Cutter Relationship Specialty Start Date End Date Yuly Cueva MD [address] [place] [address] , [address] Physician Associ D/B/A: [facility] MARIANNA Jeong PCP - General 03/14/24 documented as of this encounter
--- OUTSIDE RECORDS SUMMARY | 2024-08-04 16:52 | XMS_ITS | Clinical Summary ---
Author Organization 175 [facility] Address [address] [place] [address] Phone Care Team Providers Care Power Bender Operator Name Role Phone Yuly Cueva MD Primary Care Provider [phone] Allergies No known active allergies Medications Medication Sig Dispensed Refills Start Date End Date Status meloxicam (Mobic) 15 mg tablet Take 1 tablet (15 mg total) by mouth 1 (one) time each day. 30 tablet 06/16/2024 07/16/2024 Encounters Date Type Department Care Team Description 07/18/2024 Telephone Orthopedic Surgery [place] [address] [phone] Rylie Singh [place] 07/01/2024 2:00 PM EST Office Visit Orthopedic Surgery [place] [address] [phone] Angel Huizar DPM Controlled type 2 diabetes mellitus with diabetic polyneuropathy, without long-term current use of insulin (CMS/HCC) (Primary Dx); Neuropathy; Onychomycosis; Callus; Localized edema; Hammertoes of both feet; Metatarsalgia of right foot; Interdigital neuroma of right foot 06/16/2024 1:45 PM EST Consult Orthopedic [place] [address] [phone] Angel Huizar DPM Controlled type 2 diabetes [...] age to complete this topic Care Teams Power Bender Operator Relationship Specialty Start Date End Date Yuly Cueva MD [address] [place] [address] , [address] [facility] D/B/A: [facility] [place], [place] PCP - General 03/14/24
== END 2024-08-04 15:52 | disposition home or self-care (01) ==
PROVIDERS: PCP Internal Medicine; Visit Provider Internal Medicine
DX: E11.65 Type 2 diabetes mellitus with hyperglycemia (principal); F32.0 Major depressive disorder, single episode, mild; M25.511 Pain in right shoulder; M25.551 Pain in right hip; E78.2 Mixed hyperlipidemia; I10 Essential (primary) hypertension; Z23 Encounter for immunization

== ENCOUNTER → 2024-08-04 15:27 | Outpatient (BNVA) | payer OTHER, SELFPAY | PROVIDERS: PCP Internal Medicine; Visit Provider Internal Medicine | DX: E11.65 Type 2 diabetes mellitus with hyperglycemia (principal); F32.0 Major depressive disorder, single episode, mild; M25.511 Pain in right shoulder; M25.551 Pain in right hip; E78.2 Mixed hyperlipidemia; I10 Essential (primary) hypertension | CPT/HCPCS: 83036; 90471; 96127; 99212 ==

== ENCOUNTER 2024-09-09 15:44 | Outpatient (AMB) | payer OTHER, SELFPAY ==
--- NOTE | 2024-09-09 15:48 | A.OFFPC_ITS ---
Vital Signs 09/09/24 15:49 Height 5 ft 9 in Weight 226 lb 6 oz BMI 33.4 BP 120/62 Blood Pressure Location Lt brachial Position Sitting Pulse 87 Pulse Source Pulse Oximeter Temp 97.5 F Temp Source Temporal Artery Scan Pulse Oximetry (%) 98 Oxygen Delivery Method Room Air Intake Visit Reasons: Reaction to Trulicity Intake Note: Patient is here to follow up on Reaction to Trulicity. Industrial Locomotive Operator Required: Yes Industrial Locomotive Operator Language: Software Systems Engineer Name: Aruna ([id number]) Information Interpreted: non-clinical & clinical Motion Study Engineer: Not Required per policy Accompanied by: Self / Same As Patient Allergies atorvastatin Allergy (Intermediate, Verified 09/09/24 16:05) elevated liver enzymes dulaglutide [From Trulicity] Allergy (Intermediate, Verified 09/09/24 16:05) Rash Medication List - Last Reconciled 09/09/24 by Katarina Benjamin PA-C amlodipine 5 mg PO DAILY 90 days blood pressure monitor As directed blood sugar diagnostic (FreeStyle Lite Strips) Use 1 test strip once a day blood-glucose meter (FreeStyle Lite Meter kit) As directed cholecalciferol (vitamin D3) 50 mcg PO DAILY clotrimazole-betamethasone 1-0.05 % 1 appl topical BID PRN 30 days empagliflozin (Jardiance) 10 mg PO DAILY 90 days ezetimibe 10 mg PO DAILY 90 days hydrocortisone 1% (Anti-Itch (hydrocortisone)) 1 appl topical TID PRN 2 weeks losartan-hydrochlorothiazide 100-12.5 mg 1 tab PO DAILY 90 days metformin 1,000 mg PO BID 90 days omeprazole 40 mg PO DAILY rosuvastatin 40 mg PO DAILY 90 days Ventolin HFA 90 mcg/actuation (albuterol sulfate) 1 inh inhalation QID PRN 30 days NS Tobacco use date assessed: 09/09/24 Dental Screening Dental Screen Date: 08/04/24 HPI Reaction to Trulicity HPI Details 54-year-old male with past medical histo ry of hypertension, diabetes mellitus, GERD, asthma, depression last seen by Dr. Gomes 08/2024 coming in for acute problem. print operator Aruna [id number] was used for the duration of this visit. Presenting with an allergic reaction to Trulicity. Notable for rash and swelling, the symptoms began after the administration of Trulicity. The patient describes the rash as itchy, sizable, with bilateral distribution on the stomach, yet without pain. Discontinuation of the medication resolved the itching and reduced the rash's intensity. Trulicity was intended to address elevated Hemoglobin A1c levels alongside Jardiance, since the patient has Type 2 Diabetes Mellitus. [facility] Medical History Mixed hyperlipidemia Mild asthma Hypovitaminosis D Seasonal allergies Anxiety Pain, elbow GERD (gastroesophageal reflux disease) Diabetes HTN (hypertension) Surgical History History of third molar tooth extraction Family History Father Diabetes Hypertension Mother Hypertension Diabetes Brother Cancer Social History Housing: Apartment Alcohol intake: former Year quit: 2001 Patient Tobacco Use Status: Former Tobacco user Tobacco use type: Cigarette e-Cigarette/Vaping Use: Never Used Second Hand Smoke Exposure: Yes Substance Use Type: Former Substance User service: No Current occupational status: employed Current occupational exposures/hazards: No Cognitive needs: No Hearing needs: No Vision needs: Yes Questionnaire Thrive Questionnaire Date Thrive assessed: 08/04/24 SCHUYLER-7 AMB Questionnaire SCHUYLER-7 Date SCHUYLER - 7 assessed: 08/04/24 Source: Developed by Drs. Rory Brown, Syeda Herron, Sehr Bonilla and colleagues, with an educational gagan from [employer]. Review of Systems Const Denies fever(s) and Denies headache(s) Eyes Reports no additional complaints ENT Denies dysphagia, Denies dizziness, Denies headache(s) and Denies odynophagia Card Denies chest pain and Denies dyspnea Resp Denies cough and Denies dyspnea GI Reports no additional complaints, Denies dysphagia and Denies odynophagia Reports no additional complaints Musc Reports no additional complaints and Denies abnormal gait Skin/Breast Reports as per HPI Neuro Denies abnormal gait, Denies dizziness and Denies headache(s) Psych Reports no additional complaints Physical exam (Primary Care) Vital Signs: Last Vital Signs Temp 97.5 F 09/09/24 15:49 Pulse 87 09/09/24 15:49 BP 120/62 09/09/24 15:49 Pulse Ox 98 09/09/24 15:49 Oxygen Delivery Method Room Air 09/09/24 15:49 BMI result Body Mass Index 33.4 Tobacco/Smoking Status: Tobacco use Status Tobacco use date assessed 09/09/24 09/09/24 16:01 Patient Tobacco Use Status Former Tobacco user 09/09/24 16:01 Tobacco use type Cigarette 09/09/24 16:01 e-Cigarette/Vaping Use Never Used 09/09/24 16:01 Thrive Assessment: Date of Thrive Assessment Date Thrive assessed 08/04/24 09/09/24 16:01 Const General: cooperative, healthy appearing, comfortable and no acute distress Orientation/consciousness: patient oriented x3 HENMT Head: Yes normocephalic Ears: hearing grossly normal bilaterally General nose exam: Normal external nose present Eyes General: appearance normal, both eyes and all related structures Conjunctivae: conjunctivae normal Neck Neck: Yes full ROM and Yes no lymphadenopathy Resp Effort & Inspection: normal respiratory effort Auscultation: clear to auscultation bilaterally, no crackles, no rales, no rhonchi and no wheezes Cardio Rate: regular rate Rhythm: regular rhythm Skin Other: No rash, swelling or discoloration of the abdomen General skin exam: no rashes or lesions noted Neuro General: patient oriented x3 Gait exam (Neuro): Normal gait present Extrem General: Yes normal to inspection, Yes full ROM and No edema Psych Affect: normal affect Attitude: cooperative Insight: Good insight present (Psych) Judgement: Good judgement present (Psych) Coding Level of Care Code Est Pt Level 3 (00521) Diagnoses Dermatitis L30.9 Type 2 diabetes mellitus with hyperglycemia, without long-term current use of insulin E11.65 Diabetes mellitus type: type 2 Diabetes mellitus halfway insulin use: without terminal gauger use Diabetes mellitus complication status: with hyperglycemia Essential hypertension I10 Hypertension type: essential hypertension Assessment & Plan Assessment & Plan (1) Dermatitis: Code(s): L30.9 - Dermatitis, unspecified Category: Medical Plan: The patient experienced an allergic reaction to Trulicity, manifesting as a significant rash and swelling. Use of Trulicity is discontinued and rash has resolved at this time. Trulicity was added as an allergy this patient's chart due to injection site reaction. (2) Diabetes: Comment: fbs usually 150-170 Code(s): E11.9 - Type 2 diabetes mellitus without complications Category: Medical Qualifiers: Diabetes mellitus type: type 2 Diabetes mellitus halfway insulin use: without halfway use Diabetes mellitus complication status: with hyperglycemia Qualified Code(s): E11.65 - Type 2 diabetes mellitus with hyperglycemia Plan: The patient will be monitored for Jardiance's efficacy in controlling blood glucose. A follow-up appointment with Dr. Gomes is scheduled to decide whether additional treatment is needed, pending evaluation of how well Jardiance manages blood sugar levels independently. Current reaction symptoms appear to be res olving, with just mild redness evident. I will discuss with Dr. Gomes when she returns to the office but the discontinuation of Trulicity to see if there is additional medication that she is wanting to add to his medication regimen for management of diabetes. Otherwise plan to continue on Jardiance and follow up in November. (3) HTN (hypertension): Code(s): I10 - Essential (primary) hypertension Category: Medical Qualifiers: Hypertension type: essential hypertension Qualified Code(s): I10 - Essential (primary) hypertension Plan: Continue on current blood pressure medication. Avoid salt intake and encourage healthy diet and regular exercise. Plan This note was constructed using voice recognition software. While every effort has been made to ensure accuracy and breed to wean production technician, still areas may have been included sometimes these areas may affect the content or meeting of the given symptoms. Total time spent caring for the patient today was 15 minutes. This includes time spent before the visit reviewing the chart, time spent during the visit, and time spent after the visit and documentation. Patient was informed and verbally consented to the use of an ambient scribe for clinic note documentation during this visit.
[2024-09-09 15:49] VITALS: BP 120/62; PULSE 87; TEMP 36.4; O2SAT 98; BMI 33.4
--- OUTSIDE RECORDS SUMMARY | 2024-09-09 19:01 | XMS_ITS | Clinical Summary ---
Author Organization [address] [place] [address] Address [address] [place] [address] Phone Care Team Providers Care Cloth Picker Name Role Phone Yuly Cueva MD Primary Care Provider [phone] Allergies No known active allergies Encounters Date Type Department Care Team Description 07/18/[address] [facility] [address] [address] Rylie Singh [place] 07/01/2024 2:00 PM EST Office Visit [facility] [address] [address] Angel Huizar DPM Controlled type 2 diabetes mellitus with diabetic polyneuropathy, without long-term current use of insulin (CMS/HCC) (Primary Dx); Neuropathy; Onychomycosis; Callus; Localized edema; Hammertoes of both feet; Metatarsalgia of right foot; Interdigital neuroma of right foot 06/16/2024 1:45 PM EST Consult [facility] [address] [phone] Angel Huizar DPM Controlled type 2 diabetes with neuropathy (CMS/HCC) (Primary Dx); Hammertoes of both feet; Metatarsalgia of right foot; Interdigital neuroma of right foot from Last 3 Months Social History Tobacco Use Types Packs/Day Years Used Date Smoking Tobacco: Never Assessed Sex and Gender Information Value Date Recorded Sex Assigned at Not on file Legal Sex Male 11:41 AM EDT Gender Identity Not on file Sexual Orientation [...] Annual GFR (Glomer ular Filtration Rate) 1968 Diabetes: Annual Foot Exam 1978 Diabetes: Annual Retina Eye Exam 1978 DTaP,Tdap,and Td Vaccines (1 - Tdap) 1987 Hepatitis B Vaccines (1 of 3 - 19+ 3-dose series) 1987 Pneumococcal Vaccine: 50+ Ye ars (1 of 2 - PCV) 1987 Pneumococcal Vaccine: Pediat rics (0 to 5 Years) and At-Risk Patients (6 to 64 Years) (1 of 2 - PCV) 1987 Zoster Vaccines (1 of 2) 2018 [...] patient's age to complete this topic Meningococcal B Vacine Aged Out No lo nger eligible based on patient's age to complete this topic RSV Immunization Patients Un duy 20 months Aged Out No longer eligible b ased on patient's age to complete this topic Varicella Vaccines Aged Out No longer eligible based on patient's age to complete this topic Insurance [facility] PL[facility] Care Teams Cloth Picker Relationship Specialty Start Date End Date Yuly Cueva MD [address] [place] [address] , [address] Physician Associ D/B/A: [facility] [place], [place] PCP - General 03/14/24
== END 2024-09-09 16:24 | disposition home or self-care (01) ==
LOC: HO.HMCH 15:44
PROVIDERS: PCP Internal Medicine
DX: L30.9 Dermatitis, unspecified (principal); E11.65 Type 2 diabetes mellitus with hyperglycemia; I10 Essential (primary) hypertension

== ENCOUNTER → 2024-09-09 15:44 | Outpatient (BNVA) | payer OTHER, SELFPAY | PROVIDERS: PCP Internal Medicine | DX: L30.9 Dermatitis, unspecified (principal); E11.65 Type 2 diabetes mellitus with hyperglycemia; I10 Essential (primary) hypertension | CPT/HCPCS: 99212 ==

== ENCOUNTER 2024-09-26 08:25 | Outpatient (REF) | payer OTHER, SELFPAY ==
--- NOTE | ~2024-09-26 | XR_ITS ---
EXAMINATION: XR SHOULDER, RIGHT CLINICAL INFORMATION: M25.519 - Pain in unspecified shoulder COMPARISON: None available. TECHNIQUE: AP external rotation, Grashey, scapular Y, and axillary views of the right shoulder. FINDINGS: Normal bone mineralization. No fracture, dislocation, or suspicious bone lesion. Normal alignment. The glenohumeral joint demonstrates minimal osteoarthritic change. The AC joint associated mild arthritic spurring of predominantly the superior surface. There is trace undersurface spurring. There is a type III acromion. No undersurface spurring. The subacromial space is preserved. Remainder of the soft tissue and bony structures appear normal. XR/XR shoulder RT min 2V IMPRESSION: 1. No acute findings right shoulder. 2. Minimal degenerative arthritis in the glenohumeral joint. 3. Mild degenerative arthritis in the AC joint. Electronically signed by: Braulio Katz MD 09/26/2024 10:57 AM EDT
== END 2024-09-26 08:26 | disposition home or self-care (01) ==
LOC: HO.HOSX 08:25
PROVIDERS: Visit Provider Physician Assistant
DX: M75.101 Unspecified rotator cuff tear or rupture of right shoulder, not specified as traumatic (principal); M25.511 Pain in right shoulder
CPT/HCPCS: 73030; 99202

== ENCOUNTER 2024-09-26 09:34 | Outpatient (AMB) | payer OTHER, SELFPAY ==
--- NOTE | 2024-09-26 09:42 | MHC.OFFVIS ---
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 Patient states pain is present at the shoulder blade, occasionally radiating to the right side of the neck and his deltoid. Patient is not taking anything for pain at this time. He has not tried PT or cortisone injections. Patient denies prior injuries or surgeries to the right shoulder. 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 The discomfort occasionally affects his ability to sleep and has been persistent for a while. He has not received any prior treatment. [facility] Medical History Mixed hyperlipidemia Mild asthma Hypovitaminosis D Seasonal allergies Anxiety Pain, elbow GERD (gastroesophageal reflux disease) Diabetes HTN (hypertension) Surgical History History of third molar tooth extraction Family History Father Diabetes Hypertension Mother Hypertension Diabetes Brother Cancer Social History (Updated 09/26/24 @ 09:52 by HIRO Dc) Housing: Apartment Alcohol intake: former Year quit: 2001 Patient Tobacco Use Status: Former Tobacco user Tobacco use type: Cigarette e-Cigarette/Vaping Use: Never Used Second Hand Smoke Exposure: Yes Substance Use Type: Former Substance User service: No Current occupational status: unemployed Current occupation: rt handed Current occupational exposures/hazards: No Cognitive needs: No Hearing needs: No Vision needs: Yes Review of Systems Const All systems reviewed & are unremarkable except as noted in HPI and below Physical Exam Vital Signs: BMI result Body Mass Index 33.4 Const General: cooperative, healthy appearing and no acute distress Resp Effort & Inspection: normal respiratory effort and able to speak in complete sentences Cardio Rate: regular rate Peripheral pulses: Peripheral pulses 2+ throughout Skin Lesions: no lesions Rashes: no rashes Extrem Other: Right shoulder: Forward flexion lacking about 20 degrees and abduction to 90 degrees. Able to reach T12. Negative belly press and lift off. Pain with cross-body reach. 4/5 strength with empty can. Negative drop arm. NVI. Assessment & Plan Assessment & Plan (1) Painful arc syndrome of right shoulder: Code(s): M75.101 - Unspecified rotator cuff tear or rupture of right shoulder, not specified as traumatic Category: Medical Plan The patient is a 54-year-old male presenting with right shoulder discomfort. 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 The discomfort occasionally affects his ability to sleep and has been persistent for a while. He has not received any prior treatment. The all the office today, we discussed the role of cortisone injections and physical therapy. Patient like to defer a cortisone injection at this time due to a past medical history of diabetes that is poorly controlled. He reports that he has tried multiple medications and he developed a rash from the Trulicity and therefore has had to discontinue taking this. He would like to continue with physical therapy 1st. An order has been placed while in the office today. He will follow-up after physical therapy for continuation of conservative treatment with the possibility of cortisone injection should his diabetes to better manage that point. I also sent a prescription for Celebrex to the pharmacy to help with inflammation and pain. Celebrex 200 mg p.o. b.i.d. for 30 days. X-rays of the right shoulder which were obtained while in the office today and were reviewed by me, Angeles Keenan PA-C, revealed no acute fracture dislocation. Orders: Orders XR shoulder RT min 2V Today M25.519 - Pain in unspecified shoulder PT Evaluation and Treatment Today M75.101 - Unspecified rotator cuff tear or rupture of right shoulder, not specified as traumatic Medications: New celecoxib (Celebrex) 200 mg PO BID 30 days 60 caps 0RF Coding Level of Care Code New Pt Level 3 (19036) Diagnoses Painful arc syndrome of right shoulder M75.101
[2024-09-26 09:48] VITALS: BMI 33.4
== END 2024-09-26 10:25 | disposition home or self-care (01) ==
LOC: HO.HOS 09:35
PROVIDERS: PCP Internal Medicine; Visit Provider Physician Assistant
DX: M75.101 Unspecified rotator cuff tear or rupture of right shoulder, not specified as traumatic (principal)
CPT/HCPCS: 99203

== ENCOUNTER → 2024-09-26 09:38 | Outpatient (BNV) | payer OTHER, SELFPAY | PROVIDERS: Visit Provider Radiology Diagnostic Radiology | DX: M25.511 Pain in right shoulder (principal) | CPT/HCPCS: 73030 ==

== ENCOUNTER 2024-09-29 08:22 | Outpatient (AMB) | payer OTHER, SELFPAY ==
--- NOTE | 2024-09-29 08:57 | MHC.OFFVIS ---
Vital Signs 09/29/24 09:03 Height 5 ft 9 in Weight 226 lb BMI 33.4 Intake Visit Reasons: New prob Pain in right hip Intake Note: Brock is a 54 year old Patient reports ongoing pain for more than 6 months. No hx of injury. He states that his pain is on the groin area and stays around that area. He notices that his pain is worse when he is standing and walking. He notices that he is limping. Patient reports that he hasn't tried anything to give him relief. Wool And Pelt Grader Services: Wool And Pelt Grader Present (Kane ([id number])) Allergies atorvastatin Allergy (Intermediate, Verified 09/29/24 09:02) elevated liver enzymes dulaglutide [From Trulicity] Allergy (Intermediate, Verified 09/29/24 09:02) Rash HPI HPI New prob Pain in right hip: Details: The patient is a 54-year-old male presenting with right hip pain persisting for approximately six months. He describes the pain as localized to the groin area, particularly noticeable when rising from a seated position or during ambulation, which causes him to limp. The onset of symptoms was gradual without any clear inciting injury . The patient reports slight improvement after taking Celebrex which was prescribed for his shoulder condition at his last visit but continues to have limitations in mobility and persistent discomfort. [facility] Medical History Mixed hyperlipidemia Mild asthma Hypovitaminosis D Seasonal allergies Anxiety Pain, elbow GERD (gastroesophageal reflux disease) Diabetes HTN (hypertension) Surgical History History of third molar tooth extraction Family History Father Diabetes Hypertension Mother Hypertension Diabetes Brother Cancer Social History Housing: Apartment Alcohol intake: former Year quit: 2001 Patient Tobacco Use Status: Former Tobacco user Tobacco use type: Cigarette e-Cigarette/Vaping Use: Never Used Second Hand Smoke Exposure: Yes Substance Use Type: Former Substance User service: No Current occupational status: unemployed Current occupation: rt handed Current occupational exposures/hazards: No Cognitive needs: No Hearing needs: No Vision needs: Yes Review of Systems Const All systems reviewed & are unremarkable except as noted in HPI and below Physical Exam Vital Signs: BMI result Body Mass Index 33.4 Const General: cooperative, healthy appearing and no acute distress Resp Effort & Inspection: normal respiratory effort and able to speak in complete sentences Cardio Rate: regular rate Peripheral pulses: Peripheral pulses 2+ throughout Skin Lesions: no lesions Rashes: no rashes Extrem Other: Right/Left hip: Full hip ROM in all planes. No groin pain reported with internal external rotation. No tenderness to palpation over the greater trochanteric bursa. 3/5 strength with resisted hip flexion, knee extension, abduction, and abduction. Able to perform straight leg raise with reproduction of pain in the groin. NVI. Assessment & Plan Assessment & Plan (1) Right hip tendinitis: Code(s): M76.891 - Other specified enthesopathies of right lower limb, excluding foot Category: Medical Plan The current management plan for the patient's right hip pain involves initiating physical therapy to strengthen the hip and improve functionality. Should the symptoms persist despite this conservative approach, we would consider a fluoroscopically guided cortisone injection, which could provide further relief. The patient has been informed of the risks and benefits associated with this option and is agreeable to returning should conservative measures be inadequate. He will continue taking the Celebrex Patient was educated on cast maintenance and instructed to keep the cast clean, dry, and intact. However, should the cast become wet, dirty, damaged, or there are any concerns please call the office immediately for a cast change. For pain and inflammatory management. The his follow-up will be after physical therapy, sooner if needed. X-rays of the right hip and pelvis which were obtained while in the office today and were reviewed by me, Angeles Keenan PA-C, revealed no acute fracture/dislocation. Orders: Orders XR hip RT min 2V Today M25.559 - Pain in unspecified hip Coding Level of Care Code Est Pt Level 3 (69367) Diagnoses Right hip tendinitis M76.891
[2024-09-29 09:03] VITALS: BMI 33.4
== END 2024-09-29 09:20 | disposition home or self-care (01) ==
LOC: HO.HOS 08:23
PROVIDERS: PCP Internal Medicine; Visit Provider Physician Assistant
DX: M76.891 Other specified enthesopathies of right lower limb, excluding foot (principal)
CPT/HCPCS: 99213

== ENCOUNTER → 2024-09-29 08:25 | Outpatient (BNV) | payer OTHER, SELFPAY | PROVIDERS: Visit Provider Radiology Diagnostic Radiology | DX: M25.551 Pain in right hip (principal) | CPT/HCPCS: 73502 ==

== ENCOUNTER 2024-09-29 08:59 | Outpatient (REF) | payer OTHER, SELFPAY ==
--- NOTE | ~2024-09-29 | XR_ITS ---
EXAMINATION: XR HIP 2 OR MORE VIEWS RIGHT HISTORY: M25.559 - Pain in unspecified hip COMPARISON: There are no prior studies for comparison. FINDINGS: A single AP view of the pelvis and two views of the right hip are submitted. Osseous mineralization is normal. There is no fracture or dislocation. There is mild joint space narrowing. The soft tissues are unremarkable. XR/XR hip RT min 2V IMPRESSION: Mild joint space narrowing. Electronically signed by: Rory Srinivasan MD 09/29/2024 09:58 AM EDT
--- OUTSIDE RECORDS SUMMARY | 2024-09-30 09:41 | XMS_ITS | Clinical Summary ---
Author Organization [address] [facility] Address [address] [place] [address] Phone Care Team Providers Care Associate Professor Of Church Music Name Role Phone Yuly Cueva MD Primary Care Provider [phone] Allergies No known active allergies Encounters Date Type Department Care Team Description 07/18/2024 Telephone Orthopedic Surgery - [place] [address] [facility] [address] [place] [address] Rylie Singh [place] from Last 3 Months Social History Tobacco [...] 2018 COVID-19 Vaccine (2023-2 5 season) 2024 Cholesterol Screening (Lipid Panel) 04/11/2024 Colorectal Cancer Screening: Colonoscopy 04/11/2024 Depression Screening 04/11/2024 HIV Screening 04/11/2024 Hepatitis C Screening 04/11/2024 Social Influencers of Health Screening 04/11/2024 Diabetes: Annual Urine Albumin-Creatinine Ratio (uACR) 06/16/2024 Diabetes: Blood Sugar Contro l Test (HGBA1C) 06/16/2024 Influenza Vaccine (Season Ended) 2025 HIB Vaccines Aged Out No longer eligi [...] patient's age to complete this topic Insurance PLAN Care Teams Associate Professor Of Church Music Relationship Specialty Start Date End Date Yuly Cueva MD [address] [place] [address] , [address] [facility] Physician Associ D/B/A: [facility] MARIANNA Jeong PCP - General 03/14/24
== END 2024-09-29 09:00 | disposition home or self-care (01) ==
LOC: HO.HOSX 08:59
PROVIDERS: Visit Provider Physician Assistant
DX: M25.551 Pain in right hip (principal)
CPT/HCPCS: 73502; 99212

== ENCOUNTER 2024-12-09 15:11 | Outpatient (AMB) | payer OTHER, SELFPAY ==
[2024-12-09 15:25] VITALS: BP 120/76; BMI 33.4
--- NOTE | 2024-12-09 15:25 | A.OFFPC_ITS ---
Vital Signs 12/09/24 15:25 Height 5 ft 9 in Weight 226 lb BMI 33.4 BP 120/76 Blood Pressure Location Lt brachial Position Sitting Intake Visit Reasons: dm Intake Note: Patient here for a follow up DM Clinical Educator Required: No Accompanied by: Self / Same As Patient Allergies atorvastatin Allergy (Intermediate, Verified 12/09/24 15:39) elevated liver enzymes dulaglutide [From Trulicity] Allergy (Intermediate, Verified 12/09/24 15:39) Rash Medication List - Last Reconciled 12/09/24 by Yuly Cueva MD amlodipine 5 mg PO DAILY 90 days blood pressure monitor As directed blood sugar diagnostic (FreeStyle Lite Strips) Use 1 test strip once a day blood-glucose meter (FreeStyle Lite Meter kit) As directed celecoxib (Celebrex) 200 mg PO BID 30 days cholecalciferol (vitamin D3) 50 mcg PO DAILY clotrimazole-betamethasone 1-0.05 % 1 appl topical BID PRN 30 days empagliflozin (Jardiance) 10 mg PO DAILY 90 days ezetimibe 10 mg PO DAILY 90 days hydrocortisone 1% (Anti-Itch (hydrocortisone)) 1 appl topical TID PRN 2 weeks losartan-hydrochlorothiazide 100-12.5 mg 1 tab PO DAILY 90 days metformin 1,000 mg PO BID 90 days omeprazole 40 mg PO DAILY rosuvastatin 40 mg PO DAILY 90 days Ventolin HFA 90 mcg/actuation (albuterol sulfate) 1 inh inhalation QID PRN 30 days NS Tobacco use date assessed: 09/09/24 Dental Screening Dental Screen Date: 08/04/24 HPI HPI Comments History of Present Illness Details The patient is a 54-year-old male presenting with Type 2 Diabetes Mellitus management concerns, currently experiencing high blood glucose levels and related complications, particularly yeast infection symptoms. His current HbA1c is 8.7%, and blood sugar readings fluctuate between 130 to 200 mg/dL. He was considering increasing Jardiance dosage, but associated yeast infection symptoms necessitated a reassessment. The patient has a significant history of an adverse reaction to atorvastatin, with rashes and elevated liver enzymes. Current statin therapy with rosuvastatin has maintained his LDL cholesterol levels below 70. He reports improveable but currently adequately controlled hypertension, managed with lisinopril/hydrochlorothiazide and amlodipine. His pain, managed with Celebrex, and GERD, treated with omeprazole, remain stable. [facility] Medical History (Updated 12/09/24 @ 15:57 by Yuly Cueva MD) Mixed hyperlipidemia Mild asthma Hypovitaminosis D Seasonal allergies Anxiety Pain, elbow GERD (gastroesophageal reflux disease) Diabetes HTN (hypertension) Surgical History History of third molar tooth extraction Family History Father Diabetes Hypertension Mother Hypertension Diabetes Brother Cancer Social History Housing: Apartment Alcohol intake: former Year quit: 2001 Patient Tobacco Use Status: Former Tobacco user Tobacco use type: Cigarette e-Cigarette/Vaping Use: Never Used Second Hand Smoke Exposure: Yes Substance Use Type: Former Substance User service: No Current occupational status: unemployed Current occupation: rt handed Current occupational exposures/hazards: No Cognitive needs: No Hearing needs: No Vision needs: Yes Questionnaire Thrive Questionnaire Date Thrive assessed: 12/02/24 I am a: Patient What is your living situation today?: I have a steady place to live Within the past 12 months, did the food you bought not last and you didn't have the money to get more?: I choose not to answer this question Within the past 12 months, did you worry whether your food would run out before you got money to buy more?: I choose not to answer this question Do you have trouble getting transportation to medical appointments?: No Do you have trouble paying your heating and electricity bill?: No Do you have trouble taking care of your child, family member or friend?: No Do you have trouble with day-to-day activities such as bathing, preparing meals, shopping, managing finances, etc.?: No Are you currently unemployed and looking for a job?: No Are you interested in more education?: No Please select the resources that you would like help with: None Currently or been in a relationship where the following occur: No concerns reported THRIVE Score: 0 AUDIT C Alcohol Use Questionnaire (AUDIT-C) 1. How often do you have a drink containing alcohol?: Never 3. How often do you have six or more drinks on one occasion?: Never Total Score: 0 Score Reviewed/Action Taken: No SCHUYLER-7 AMB Questionnaire SCHUYLER-7 Date SCHUYLER - 7 assessed: 08/04/24 Source: Developed by Drs. Rory Brown, Syeda Herron, Sher Bonilla and colleagues, with an educational gagan from [employer]. Review of Systems Const All systems reviewed & are unremarkable except as noted in HPI and below Card Denies chest pain at rest, Denies chest pain with activity, Denies edema, Denies irregular heart rhythm, Denies claudication, Denies dyspnea, Denies dyspnea on exertion, Denies orthopnea, Denies paroxysmal nocturnal dyspnea and Denies slow heart rate Resp Denies cough, Denies dyspnea and Denies dyspnea on exertion GI Denies abdominal pain, Denies change in bowel habits, Denies excessive flatus, Denies nausea and Denies vomiting Denies urinary hesitancy, Denies urinary incontinence and Denies urinary urgency Musc Denies abnormal gait, Denies atrophy, Denies deformity and Denies limited range of motion Skin/Breast Denies bleeding lesions, Denies changing lesions and Denies rash Neuro Denies abnormal gait, Denies behavioral changes and Denies lack of coordination Psych Denies behavioral changes Physical exam (Primary Care) Vital Signs: Last Vital Signs BP 120/76 12/09/24 15:25 BMI result Body Mass Index 33.4 BMI Assessment/Plan discussion: High BMI High, discussed plan: lifestyle, weight reduction, dietary, physical activity and alcohol moderation Tobacco/Smoking Status: Tobacco use Status Tobacco use date assessed 09/09/24 12/09/24 15:30 Patient Tobacco Use Status Former Tobacco user 12/09/24 15:30 Tobacco use type Cigarette 12/09/24 15:30 e-Cigarette/Vaping Use Never Used 12/09/24 15:30 Thrive Assessment: Date of Thrive Assessment Date Thrive assessed 12/02/24 12/09/24 15:30 Currently or been in a relationship where the following occur: No concerns reported Resp Effort & Inspection: normal respiratory effort Auscultation: clear to auscultation bilaterally Cardio Jugular venous distension: no JVD Rate: regular rate Rhythm: regular rhythm Heart sounds: S1 normal heart sound present and S2 normal heart sound present Extrem General: Yes full ROM Results AMB Hemoglobin A1c AMB Hemoglobin A1c 8.7 % Last Edit by HIRO Batista on 12/09/24 15:3 6 Results Reviewed Results Reviewed: Laboratory Last Values Hgb A1c (Clinic) 8.7 % (4.0-6.0) H 12/09/24 15:24 Coding Level of Care Code Est Pt Level 4 (17031) Complex EM visit Add On G2211 Diagnoses Type 2 diabetes mellitus with hyperglycemia, without long-term current use of insulin E11.65 Diabetes mellitus type: type 2 Diabetes mellitus remote computer terminal operator insulin use: without care home use Diabetes mellitus complication status: with hyperglycemia Essential hypertension I10 Hypertension type: essential hypertension Mixed hyperlipidemia E78.2 Testicular lesion N50.9 Renetta infection B37.9 Gastroesophageal reflux disease, unspecified whether esophagitis present K21.9 Esophagitis presence: esophagitis presence not specified Time Spent (min) 22 Assessment & Plan Assessment & Plan (1) Diabetes: Comment: fbs usually 150-170 Code(s): E11.9 - Type 2 diabetes mellitus without complications Category: Medical Qualifiers: Diabetes mellitus type: type 2 Diabetes mellitus remote computer terminal operator insulin use: without care home use Diabetes mellitus complication status: with hyperglycemia Qualified Code(s): E11.65 - Type 2 diabetes mellitus with hyperglycemia (2) HTN (hypertension): Code(s): I10 - Essential (primary) hypertension Category: Medical Qualifiers: Hypertension type: essential hypertension Qualified Code(s): I10 - Essential (primary) hypertension (3) Mixed hyperlipidemia: Code(s): E78.2 - Mixed hyperlipidemia Category: Medical (4) Testicular lesion: Code(s): N50.9 - Disorder of male genital organs, unspecified Category: Medical (5) Renetta infection: Code(s): B37.9 - Candidiasis, unspecified Category: Medical (6) GERD (gastroesophageal reflux disease): Code(s): K21.9 - Gastro-esophageal reflux disease without esophagitis Category: Medical Qualifiers: Esophagitis presence: esophagitis presence not specified Qualified Code(s): K21.9 - Gastro-esophageal reflux disease without esophagitis Plan Plans include discontinuing Jardiance due to associated yeast infection symptoms and considering a switch to Ozempic, pending insurance approval. Resuming Januvia is a potential alternative should coverage issues arise. An antifungal cream is proposed for current symptoms. Continued use of rosuvastatin, antihypertensive regimens, and pain management medications will persist. The patient's next scheduled eye examination is in October, ensuring diabetic eye care continuity. Patient was informed and verbally consented to the use of an ambient scribe for clinic note documentation during this visit. During our consultation, I discussed the risk of yeast infections associated with SGLT2 inhibitors like Jardiance, and why switching to Ozempic might present a preferable risk profile, pending approval. We also reviewed the importance of keeping daily blood glucose logs for better management insights. We agree that surgical intervention for yeast infection is unnecessary, and an antifungal cream should provide adequate relief. A careful review of past responses to medications influenced our plan, considering liver enzyme elevation with atorvastatin in deciding to maintain current statin use. Orders: Orders Lipid Panel 4 Months E78.5 - Hyperlipidemia, unspecified Microalbumin, Random (w Creat) 4 Months R80.9 - Proteinuria, unspecified Vitamin D 25-OH Total 4 Months E55.9 - Vitamin D deficiency, unspecified AMB Hemoglobin A1c Today E11.65 - Type 2 diabetes mellitus with hyperglycemia Comprehensive [place]. Panel Fast 4 Months E78.2 - Mixed hyperlipidemia Referrals Urology Referral N50.9 - Disorder of male genital organs, unspecified Medications: New semaglutide (Ozempic) for 4 weeks 0.25 mg (0.368 mL) subcut QWEEK 4 weeks 1.472 mL 0RF E11.65 - Type 2 diabetes mellitus with hyperglycemia clotrimazole 1% 1 appl topical BID 2 weeks 30 grams 1RF Discontinued ezetimibe Discontinued Reason: Patient Completed Course 10 mg PO DAILY 90 days 90 tabs 1RF empagliflozin (Jardiance) Discontinued Reason: Patient Completed Course 10 mg PO DAILY 90 days 90 tabs 0RF Patient Instructions: - Begin using prescribed cream for yeast infection symptoms. - Monitor blood sugar levels twice daily. - Continue current medications for hypertension and dyslipidemia. - Schedule ophthalmology follow-up in April. - Note any worsening infections, glucose levels outside target range, or other new symptoms and contact our office.
--- OUTSIDE RECORDS SUMMARY | 2024-12-09 18:21 | XMS_ITS | Clinical Summary ---
Author Organization [address] [facility] Address [address] [place] [address] Phone Care Team Providers Care Machine Cutter Name Role Phone Yuly Cueva MD Primary Care Provider [phone] Allergies No known active allergies Social History Tobacco Use Types Packs/Day Years [...] Health Maintenance Due Date Last Done Comments DTaP,Tdap,and Td Vaccines (1 - Tdap) 1987 [...] 04/11/2024 Social Influencers of Health Screening 04/11/2024 Influenza Vaccine (Season Ended) 2025 HIB Vaccines [...] age to complete this topic Meningococcal B Vaccine Aged Out No l onger eligible based on patient's age to complete this topic RSV Immunization Patients Un duy 20 months Aged Out No longer eligible b ased on patient's age to complete this topic Varicella Vaccines Aged Out No longer eligible based on patient's age to complete this topic Insurance [place] [address] PLAN Care Teams Machine Cutter Relationship Specialty Start Date End Date Yuly Cueva MD [address] [place] [address] , [address] [facility] Associ D/B/A: [facility] [place] PCP - General 03/14/24
== END 2024-12-09 15:54 | disposition home or self-care (01) ==
LOC: HO.HMCH 15:12
PROVIDERS: PCP Internal Medicine; Visit Provider Internal Medicine
DX: E11.65 Type 2 diabetes mellitus with hyperglycemia (principal); I10 Essential (primary) hypertension; E78.2 Mixed hyperlipidemia; N50.9 Disorder of male genital organs, unspecified; B37.9 Candidiasis, unspecified; K21.9 Gastro-esophageal reflux disease without esophagitis

== ENCOUNTER → 2024-12-09 15:11 | Outpatient (BNVA) | payer OTHER, SELFPAY | PROVIDERS: PCP Internal Medicine; Visit Provider Internal Medicine | DX: E11.65 Type 2 diabetes mellitus with hyperglycemia (principal); I10 Essential (primary) hypertension; K21.9 Gastro-esophageal reflux disease without esophagitis; E78.2 Mixed hyperlipidemia; N50.9 Disorder of male genital organs, unspecified; B37.9 Candidiasis, unspecified; E78.5 Hyperlipidemia, unspecified; R80.9 Proteinuria, unspecified; E55.9 Vitamin D deficiency, unspecified; Z79.899 Other long term (current) drug therapy | CPT/HCPCS: 83036; 99212 ==

== ENCOUNTER 2024-12-18 07:47 | Outpatient (RCR) | payer OTHER, SELFPAY ==
[2024-12-11 07:25] VITALS: BP 120/70; PULSE 72; O2SAT 99
--- NOTE | 2024-12-11 11:41 | MHC.PT.EP ---
[facility] [place] Office [place] Office [place] Office [address] Geeta Dunham [address] [phone] F: [phone] F: [phone] F: [phone] F: [phone] Physical Therapy Plan of Care Date of Evaluation: 12/11/24 Date of Surgery: Diagnosis: PT eval and treat; M75.101 Unspecified rotator cuff tear of rupture of right shoulder, not specified as traumatic, painful arc syndrome of R shoulder date of script 09/29/24 by Angeles Morris PA-C; M76. 891 Other specified enthesopathies of right lower limb, excluding foot, R hip tendonitis signed by Shlomo 09/29/24 Assessment: Pt is a RHD 54 y/o Stateless speaking male, referred to PT for treatment of R hip tendonitis and R shoulder rotator cuff tear; Pt had xrays R shoulder/R hip (see reports)) R hip PT eval and treat; M75.101 Unspecified rotator cuff tear of rupture of right shoulder, not specified as traumatic, painful arc syndrome of R shoulder date of script 09/29/24 by Angeles Morris PA-C; M76. 891 Other specified enthesopathies of right lower limb, excluding foot, R hip tendonitis signed by Shlomo 09/29/24. Pt will benefit from attending skilled PT services 2x/week x 4 week to address impairments in shoulder ROM, address deficits in strength/pain, and improve mobility to resume PLOF. He notes pain with rising after being seated for a prolonged period in his R hip, exhibits antalgic gait, denies pain with active hip flexion today but is TTP and reports his pain is in his groin/hip flexor region. Post initial evaluation pt was educated in the benefit of trying ice to reduce his shoulder pain, supportive positions to try and reduce shoulder pain, and was educated re: plans for therapy. Pt may benefit from a follow up with orthopedics upon completion of PT in 4-6 weeks to assess changes in ROM/functionality of R shoulder. He may benefit from MRI> follow up for shoulder with orthopedic should sx of pain not improve with PT. Pt states he was offered a cortisone injection but due to elevated blood sugars he has deferred this at this time. Frequency and Duration: The patient will be seen 2x/week x 4 weeks Short Term Goals: 1. AAROM flexion to 120 degrees on the right. 2. AAROM abduction to 120 degrees on the right. 3. Pt will initiate self care/HEP program to reduce sx R shoulder. 4. Initiate hip flexor stretching program MOD I. 5. Pt will demonstrate carryover of postural education/ positional support to ease sx. Certified Diabetes Educator Goals: 1. AAROM flexion to 150 degrees. 2. Pt will demonstrate strength R shoulder flexion strength to 4/5. 3. Pt will demonstrate I HEP program for self management of R hip flexor and R shoulder. 4. Pt will demonstrate improvement in SPADI score by 50%. 5. Reduce R shoulder pain by 50% during ADLS/IADLS. 6. Demonstrate carryover of education post instruction for AAROM vs AROM to reduce sx in R UE. Treatment Plan: Modalities to reduce pain, spasms and effusion. Manual therapy to restore motion and function. Therapeutic exercise to improve strength and flexibility. Neuromuscular re-education for posture and balance. Therapeutic activities to return to functional activities of daily living. Electronically signed by: Josefa Durand, PT, DPT Please sign and return to therapist. Thank you for your referral.
== END 2025-01-09 12:41 | disposition home or self-care (01) ==
LOC: HO.PTS 07:47
PROVIDERS: Visit Provider Physician Assistant
DX: M76.891 Other specified enthesopathies of right lower limb, excluding foot (principal); M75.101 Unspecified rotator cuff tear or rupture of right shoulder, not specified as traumatic
CPT/HCPCS: 97110; 97140; 97161

== ENCOUNTER 2024-12-26 10:13 | Outpatient (AMB) | payer OTHER, SELFPAY ==
--- OUTSIDE RECORDS SUMMARY | 2024-12-26 10:55 | XMS_ITS | Clinical Summary ---
Author Organization [address] [facility] Address [address] [place] [address] Phone Care Team Providers Care Stripping Shovel Oiler Name Role Phone Yuly Cueva MD Primary Care Provider [phone] Allergies No known active allergies Social History [...] patient's age to complete this topic [place] [address] [place] [address] PLAN Care Teams Stripping Shovel Oiler Relationship Specialty Start Date End Date Yuly Cueva MD [address] [place] [address] , [address] [facility] D/B/A: [facility] [place] PCP - General 03/14/24
--- NOTE | 2024-12-26 11:13 | A.OFFVIS_ITS ---
Intake Visit Reasons: recurrent yeast infections Intake Note: New patient presents today for initial visit for recurrent yeast infection Urology Medication:None Blood Thinner:None Antibiotic Allergies:None Applications Engineer Manufacturing Required: Yes Information Interpreted: non-clinical & clinical Allergies atorvastatin Allergy (Intermediate, Verified 12/26/24 11:14) elevated liver enzymes dulaglutide (From Trulicity) Allergy (Intermediate, Verified 12/26/24 11:14) Rash Medication List - Last Reconciled 12/26/24 by Melissa Strickland MD amlodipine 5 mg PO DAILY 90 days blood pressure monitor As directed blood sugar diagnostic (FreeStyle Lite Strips) Use 1 test strip once a day blood-glucose meter (FreeStyle Lite Meter kit) As directed celecoxib (Celebrex) 200 mg PO BID 30 days cholecalciferol (vitamin D3) 50 mcg PO DAILY clotrimazole 1% 1 appl topical BID 2 weeks clotrimazole-betamethasone 1-0.05 % 1 appl topical BID PRN 30 days hydrocortisone 1% (Anti-Itch (hydrocortisone)) 1 appl topical TID PRN 2 weeks losartan-hydrochlorothiazide 100-12.5 mg 1 tab PO DAILY 90 days metformin 1,000 mg PO BID 90 days omeprazole 40 mg PO DAILY rosuvastatin 40 mg PO DAILY 90 days semaglutide (Ozempic) 0.25 mg (0.368 mL) subcut QWEEK 4 weeks semaglutide (Ozempic) 0.5 mg (0.736 mL) subcut QWEEK 4 weeks Ventolin HFA 90 mcg/actuation (albuterol sulfate) 1 inh inhalation QID PRN 30 days NS HPI Comments Details: 12/26/24 History of Present Illness - The patient is a 54-year-old male presenting with concerns of genital warts and a history of balanitis. - He states warts have been present for more than two years, with no specific inciting events noted. - The patient has a history of a balanitis, for which a cream was prescribed by his PCP, and reports no current irritation or redness in the penile area. - The patient is not circumcised, which may contribute to recurrent yeast infections, especially given his diabetic status. Results UA - negative leuks, negative blood Discussion Notes I discussed with the patient the history of genital yeast infections. We talked about the potential need for circumcision if yeast infections become recurrent due to his diabetic status. I explained the importance of a PSA test to monitor prostate health, especially given his age. The patient was informed about the need to avoid sexual activity 48 hours before the PSA test to ensure accurate results. Examination notes 1 raised irregular lesion on the scrotum differential diagnosis includes skin tag. I have discussed with the patient excision and sending tissue to pathology for definitive diagnosis. [facility] Medical History Mixed hyperlipidemia Mild asthma Hypovitaminosis D Seasonal allergies Anxiety Pain, elbow GERD (gastroesophageal reflux disease) Diabetes HTN (hypertension) Surgical History History of third molar tooth extraction Family History Father Diabetes Hypertension Mother Hypertension Diabetes Brother Cancer Social History Housing: Apartment Alcohol intake: former Year quit: 2001 Patient Tobacco Use Status: Former Tobacco user Tobacco use type: Cigarette e-Cigarette/Vaping Use: Never Used Second Hand Smoke Exposure: Yes Substance Use Type: Former Substance User service: No Current occupational status: unemployed Current occupation: rt handed Current occupational exposures/hazards: No Cognitive needs: No Hearing needs: No Vision needs: Yes Review of Systems Const All systems reviewed & are unremarkable except as noted in HPI and below Reports no additional complaints Eyes Reports no additional complaints ENT Reports no additional complaints Card Reports no additional complaints Resp Reports no additional complaints GI Reports no additional complaints Reports as per HPI Musc Reports no additional complaints Skin/Breast Reports system reviewed and no additional complaints, except as documented Neuro Reports no additional complaints Psych Reports no additional complaints Endo Reports no additional complaints Dylon/Lymph Reports no additional complaints Aller/Immun Reports no additional complaints Physical Exam Const General: healthy appearing, no acute distress and well developed Orientation/consciousness: patient oriented x3 HEENT Head: Yes normocephalic and Yes atraumatic Eyes Conjunctivae: conjunctivae normal Neck Neck: Yes normal visual inspection Chest Chest palpation & inspection: normal inspection of the chest Resp Effort & Inspection: normal respiratory effort GI Inspection: Yes normal to inspection Other: Scrotum- irregular lesion 3 mm x 2 mm, differential diagnosis includes skin tag Penis: normal penis and uncircumcised (Able to retract foreskin glands normal) Neuro General: patient oriented x3 Psych Appearance: grossly normal Affect: normal affect Results AMB Urinalysis, Automated UA Leukoctes 0 Elda/uL Last Edit by Mohini Naun on 12/26/24 16:32 UA Nitrite Negative Last Edit by Mohini Magallon on 12/26/24 16:32 UA Urobilinogen 3.5 mg/dL Last Edit by Mohini Magallon on 12/26/24 16:32 UA Protein 0.3 mg/dL Last Edit by Mohini Magallon on 12/26/24 16:32 UA pH 8.0 Last Edit by Mohini Magallon on 12/26/24 16:32 UA Blood 0 Ney/uL Last Edit by Mohini Magallon on 12/26/24 16:32 UA Specific [place] 1.010 Last Edit by Mohini Magallon on 12/26/24 16:32 UA Ketone Negative Last Edit by Mohini Magallon on 12/26/24 16:32 UA Bilirubin 0 mg/dL Last Edit by Mohini Magallon on 12/26/24 16:32 UA Glucose 0 mg/dL Last Edit by Mohini Magallon on 12/26/24 16:32 Results Reviewed Results Reviewed: Laboratory Last Values Urine pH (Auto) 8.0 12/26/24 13:57 Specific [place] (Auto) 1.010 12/26/24 13:57 Urine Protein (Auto) 0.3 mg/dL 12/26/24 13:57 Glucose (UA)(Auto) 0 mg/dL 12/26/24 13:57 Urine Ketones (Auto) Negative 12/26/24 13:57 Urine Blood (Auto) 0 Ney/uL 12/26/24 13:57 Urine Nitrite (Auto) Negative 12/26/24 13:57 Urine Bilirubin (Auto) 0 mg/dL 12/26/24 13:57 Urine Urobilinogen (Auto) 3.5 mg/dL 12/26/24 13:57 Leukocyte Esterase (Auto) 0 Elda/uL 12/26/24 13:57 Assessment & Plan Assessment & Plan (1) Screening PSA (prostate specific antigen): Code(s): Z12.5 - Encounter for screening for malignant neoplasm of prostate Category: Medical (2) Balanitis: Code(s): N48.1 - Balanitis Category: Medical (3) Scrotal lesion: Code(s): N50.9 - Disorder of male genital organs, unspecified Category: Medical Plan Plan - Arrange for the excision of lesion on the scrotum and send it for pathological examination. - Monitor for recurrent yeast infections; consider circumcision if infections persist due to diabetes mellitus. - Conduct a PSA testing Orders: Orders AMB Urinalysis Automated 12/26/24 Z13.9 - Encounter for screening, unspecified PSA,Total (Free>4and<10) 12/26/24 Z12.5 - Encounter for screening for malignant neoplasm of prostate Patient Instructions: The patient had an opportunity to ask questions regarding treatment plan. The patient expressed understanding and agreement with the above treatment plan. The patient is aware they should contact our office by phone for worsening of their current condition or the appearance of new symptoms. Compliance is encouraged with any medications and followup testing that is ordered. It is a privilege to be allowed the opportunity to participate in the urologic care of your patient. If you have any questions or concerns regarding treatment for the above conditions please do not hesitate to contact me. The office telephone contact is [phone]. This note is constructed in part using voice recognition software. While every effort has been made to ensure accuracy customer service technician errors may have been included. Yours sincerely, Melissa Strickland MD Scribe Plan - Not visible on output: Patient was informed and verbally consented to the use of an ambient scribe for clinic note documentation during this visit. Coding Level of Care Code New Pt Level 4 (44891) Diagnoses Screening PSA (prostate specific antigen) Z12.5 Balanitis N48.1 Scrotal lesion N50.9
== END 2024-12-26 12:21 | disposition home or self-care (01) ==
PROVIDERS: PCP Internal Medicine; Visit Provider Urology
DX: Z13.9 Encounter for screening, unspecified (principal)
CPT/HCPCS: 99204

== ENCOUNTER → 2024-12-26 10:13 | Outpatient (BNVA) | payer OTHER, SELFPAY | PROVIDERS: PCP Internal Medicine; Visit Provider Urology | DX: N48.1 Balanitis (principal); Z12.5 Encounter for screening for malignant neoplasm of prostate; N50.9 Disorder of male genital organs, unspecified | CPT/HCPCS: 81003; 99202 ==

== ENCOUNTER 2025-03-13 08:43 | Outpatient (REF) | payer OTHER, SELFPAY ==
--- OUTSIDE RECORDS SUMMARY | 2025-03-13 09:24 | XMS_ITS | Clinical Summary ---
Author Organization [address] [facility] Address [address] [place] [address] Phone Care Team Providers Care Flitch Hanger Name Role Phone Yuly Cueva MD Primary Care Provider [phone] Allergies No known active allergies Social History [...] ars (1 of 2 - PCV) 1987 Zoster Vaccines (1 of 2) 2018 Cholesterol Screening (Lipid Panel) 04/11/2024 Colorectal Cancer Screening: Colonoscopy 04/11/2024 HIV Screening 04/11/2024 Hepatitis C Screening 04/11/2024 Social Influencers of Health Screening 04/11/2024 Depression Screening 07/02/2024 COVID-19 Vaccine ( - 2023-2 5 season) 2025 Influenza Vaccine (#1) 2025 HIB Vaccines Aged Out No longer [...] patient's age to complete this topic Insurance [employer] [employer] Care Teams Flitch Hanger Relationship Specialty Start Date End Date Yuly Cueva MD [address] [place] [address] , [address] [facility] D/B/A: [facility] [place], [place] PCP - General 03/14/24
[2025-03-13 10:19] LABS: Alanine Aminotransferase 39 U/L (0-40); Albumin Level 4.8 g/dL (3.5-5.0); Alkaline Phosphatase 61 U/L (39-117); Anion Gap 13 (12-20); Aspartate Amino Transferase 42 U/L (5-37); Blood Urea Nitrogen 9 mg/dL (9-16); Calcium 9.7 mg/dL (8.4-10.2); Carbon Dioxide 28 mmol/L (22-29); Chloride 102 mmol/L (96-108); Cholesterol 128 mg/dL (<200); Estimated Glomerular Filt Rate > 60; HDL Cholesterol 36 mg/dL (>40); Potassium 3.9 mmol/L (3.3-5.1); Sodium 139 mmol/L (135-145); Total Protein 7.8 g/dL (6.5-8.0); Triglycerides 130 mg/dL (<150)
[2025-03-13 10:29] LABS: PSA,Total (Free>4and<10) 1.33 ng/mL (0.00-4.00)
[2025-03-13 11:41] LABS: Microalbum/Creatinine Ratio Ur 4.0 ug/mg cr (<30)
== END 2025-03-13 08:44 | disposition home or self-care (01) ==
LOC: HO.LAB 08:43
PROVIDERS: Urology; PCP Internal Medicine; Visit Provider Internal Medicine
DX: Z12.5 Encounter for screening for malignant neoplasm of prostate (principal); E78.2 Mixed hyperlipidemia; R80.9 Proteinuria, unspecified; E78.5 Hyperlipidemia, unspecified; E55.9 Vitamin D deficiency, unspecified
CPT/HCPCS: 36415; 80053; 80061; 82043; 82306; 82570; 84153

== ENCOUNTER 2025-03-19 10:24 | Outpatient (AMB) | payer OTHER, SELFPAY ==
--- NOTE | 2025-03-19 11:13 | A.OFFVIS_ITS ---
Intake Visit Reasons: PSA/ Excision scrotal lesion Intake Note: Patient presents today for initial visit for recurrent yeast infection Urology Medication:None Blood Thinner:None Antibiotic Allergies:None Environmental Field Team Member Required: Yes Information Interpreted: non-clinical & clinical Allergies atorvastatin Allergy (Intermediate, Verified 03/19/25 11:13) elevated liver enzymes dulaglutide (From Trulicity) Allergy (Intermediate, Verified 03/19/25 11:13) Rash HPI Comments Details: 03/19/25--Here for excision of scrotal lesion PSA reviewed - 03/13/25--1.33 ng/mL Telehealth Followup to discuss path results 12/26/24 History of Present Illness - The patient is a 54-year-old male presenting with concerns of genital warts and a history of balanitis. - He states warts have been present for more than two years, with no specific inciting events noted. - The patient has a history of a balanitis, for which a cream was prescribed by his PCP, and reports no current irritation or redness in the penile area. - The patient is not circumcised, which may contribute to recurrent yeast infections, especially given his diabetic status. Results UA - negative leuks, negative blood Discussion Notes I discussed with the patient the history of genital yeast infections. We talked about the potential need for circumcision if yeast infections become recurrent due to his diabetic status. I explained the importance of a PSA test to monitor prostate health, especially given his age. The patient was informed about the need to avoid sexual activity 48 hours before the PSA test to ensure accurate results. Examination notes 1 raised irregular lesion on the scrotum differential diagnosis includes skin tag. I have discussed with the patient excision and sending tissue to pathology for definitive diagnosis. [facility] Medical History Mixed hyperlipidemia Mild asthma Hypovitaminosis D Seasonal allergies Anxiety Pain, elbow GERD (gastroesophageal reflux disease) Diabetes HTN (hypertension) Surgical History History of third molar tooth extraction Family History Father Diabetes Hypertension Mother Hypertension Diabetes Brother Cancer Social History Housing: Apartment Alcohol intake: former Year quit: 2001 Patient Tobacco Use Status: Former Tobacco user Tobacco use type: Cigarette e-Cigarette/Vaping Use: Never Used Second Hand Smoke Exposure: Yes Substance Use Type: Former Substance User service: No Current occupational status: unemployed Current occupation: rt handed Current occupational exposures/hazards: No Cognitive needs: No Hearing needs: No Vision needs: Yes Review of Systems Const All systems reviewed & are unremarkable except as noted in HPI and below Reports no additional complaints Eyes Reports no additional complaints ENT Reports no additional complaints Card Reports no additional complaints Resp Reports no additional complaints GI Reports no additional complaints Reports as per HPI Musc Reports no additional complaints Skin/Breast Reports system reviewed and no additional complaints, except as documented Neuro Reports no additional complaints Psych Reports no additional complaints Endo Reports no additional complaints Dylon/Lymph Reports no additional complaints Aller/Immun Reports no additional complaints Office Procedures Excision Details: 7ml of 2% lidocaine injected by Dr. Strickland Skin prepped with betadine, local used and the lesion was excised and 4.0 chromic used. [id number] scalp/neck/hands/feet/genitalia 1.1cm-2cm Additional procedure code (CPT) needed Office Meds lidocaine 1 %-epinephrine 1:100,000 injection solution Performing Provider: Melissa Strickland MD Per[facility] Documented (not given) by: Melissa Strickland MD on 03/19/25 11:45 Reason Not Given: No Longer Necessary Results AMB Urinalysis, Automated UA Leukoctes 0 Elda/uL Last Edit by Mohini Magallon on 03/19/25 15:24 UA Nitrite Negative Last Edit by Mohini Magallon on 03/19/25 15:24 UA Urobilinogen 0.2 mg/dL Last Edit by Mohini Magallon on 03/19/25 15:24 UA Protein 30 mg/dL Last Edit by Mohini Magallon on 03/19/25 15:24 UA pH 8.0 Last Edit by Mohini Magallon on 03/19/25 15:24 UA Blood 0 Ney/uL Last Edit by Mohini Magallon on 03/19/25 15:24 UA Specific [place] 1.010 Last Edit by Mohini Magallon on 03/19/25 15:24 UA Ketone Negative Last Edit by Mohini Magallon on 03/19/25 15:24 UA Bilirubin 1 mg/dL Last Edit by Mohini Magallon on 03/19/25 15:24 UA Glucose 0 mg/dL Last Edit by Mohini Magallon on 03/19/25 15:24 Results Reviewed Results Reviewed: Laboratory Last Values Urine pH (Auto) 8.0 03/19/25 14:32 Specific [place] (Auto) 1.010 03/19/25 14:32 Urine Protein (Auto) 30 mg/dL 03/19/25 14:32 Glucose (UA)(Auto) 0 mg/dL 03/19/25 14:32 Urine Ketones (Auto) Negative 03/19/25 14:32 Urine Blood (Auto) 0 Ney/uL 03/19/25 14:32 Urine Nitrite (Auto) Negative 03/19/25 14:32 Urine Bilirubin (Auto) 1 mg/dL 03/19/25 14:32 Urine Urobilinogen (Auto) 0.2 mg/dL 03/19/25 14:32 Leukocyte Esterase (Auto) 0 Elda/uL 03/19/25 14:32 Assessment & Plan Assessment & Plan (1) Screening PSA (prostate specific antigen): Code(s): Z12.5 - Encounter for screening for malignant neoplasm of prostate Category: Medical (2) Scrotal lesion: Code(s): N50.9 - Disorder of male genital organs, unspecified Category: Medical Plan Here for excision of scrotal lesion PSA reviewed - 03/13/25--1.33 ng/mL Telehealth Followup to discuss path results Orders: Orders AMB Excision Today N50.9 - Disorder of male genital organs, unspecified Surgical Today N50.9 - Disorder of male genital organs, unspecified AMB Urinalysis Automated Today N48.1 - Balanitis, N50.9 - Disorder of male genital organs, unspecified Patient Instructions: The patient had an opportunity to ask questions regarding treatment plan. The patient expressed understanding and agreement with the above treatment plan. The patient is aware they should contact our office by phone for worsening of their current condition or the appearance of new symptoms. Compliance is encouraged with any medications and followup testing that is ordered. It is a privilege to be allowed the opportunity to participate in the urologic care of your patient. If you have any questions or concerns regarding treatment for the above conditions please do not hesitate to contact me. The office telephone contact is [phone]. This note is constructed in part using voice recognition software. While every effort has been made to ensure accuracy underwater hunter errors may have been included. Yours sincerely, Melissa Strickland MD Coding Level of Care Code Procedure Only Diagnoses Screening PSA (prostate specific antigen) Z12.5 Scrotal lesion N50.9 CPT Codes Scalp/Neck/Hands/Feet/Genetalia - CPT: 79207-[id number] scalp/neck/hands/feet/genitalia 1.1cm-2cm ([id number])
--- OUTSIDE RECORDS SUMMARY | 2025-03-19 12:23 | XMS_ITS | Clinical Summary ---
Author Organization 175 [facility] Address [address] [place] [address] Phone Care Team Providers Care Vice President Education Name Role Phone Yuly Cueva MD Primary Care Provider [phone] Allergies No known active allergies Social History [...] patient's age to complete this topic Insurance [facility] [employer] Care Teams Vice President Education Relationship Specialty Start Date End Date Yuly Cueva MD [address] [place] [address] , [address] [facility] D/B/A: [facility] [place], [place] PCP - General 03/14/24
== END 2025-03-19 11:43 | disposition home or self-care (01) ==
LOC: HO.HUSH 10:25
PROVIDERS: PCP Internal Medicine; Visit Provider Urology
DX: D29.4 Benign neoplasm of scrotum (principal); N48.1 Balanitis
CPT/HCPCS: 11422

== ENCOUNTER 2025-03-19 10:24 | Outpatient (REF) | payer OTHER, SELFPAY | END 2025-03-19 10:25 | disposition home or self-care (01) | LOC: HO.LNP 10:24 | PROVIDERS: PCP Internal Medicine; Visit Provider Urology | DX: N50.9 Disorder of male genital organs, unspecified (principal); N48.1 Balanitis; Z12.5 Encounter for screening for malignant neoplasm of prostate | CPT/HCPCS: 11422; 81003; 88304 ==

== ENCOUNTER 2025-04-07 15:32 | Outpatient (AMB) | payer OTHER, SELFPAY ==
--- NOTE | 2025-04-07 16:23 | A.OFFPC_ITS ---
Vital Signs 04/07/25 16:24 Height 5 ft 9 in Weight 232 lb 4 oz BMI 34.3 BP 140/68 H Blood Pressure Location Lt brachial Position Sitting Respiration 18 Pulse 71 Pulse Source Pulse Oximeter Temp 97.3 F Temp Source Temporal Artery Scan Pulse Oximetry (%) 97 Oxygen Delivery Method Room Air Intake Visit Reasons: Annual Exam Contract Implementation Analyst Required: No Accompanied by: Self / Same As Patient Allergies atorvastatin Allergy (Intermediate, Verified 04/07/25 16:41) elevated liver enzymes dulaglutide (From Trulicity) Allergy (Intermediate, Verified 04/07/25 16:41) Rash Medication List - Last Reconciled 04/07/25 by Yuly Cueva MD amlodipine 5 mg PO DAILY 90 days blood pressure monitor As directed blood sugar diagnostic (FreeStyle Lite Strips) Use 1 test strip once a day blood-glucose meter (FreeStyle Lite Meter kit) As directed cholecalciferol (vitamin D3) 50 mcg PO DAILY clotrimazole 1% 1 appl topical BID 2 weeks clotrimazole-betamethasone 1-0.05 % 1 appl topical BID PRN 30 days hydrocortisone 1% (Anti-Itch (hydrocortisone)) 1 appl topical TID PRN 2 weeks losartan-hydrochlorothiazide 100-12.5 mg 1 tab PO DAILY 90 days metformin 1,000 mg PO BID 90 days omeprazole 40 mg PO DAILY rosuvastatin 40 mg PO DAILY 90 days semaglutide (Ozempic) 0.5 mg (0.736 mL) subcut QWEEK 4 weeks semaglutide (Ozempic) 0.25 mg (0.368 mL) subcut QWEEK 4 weeks Ventolin HFA 90 mcg/actuation (albuterol sulfate) 1 inh inhalation QID PRN 30 days NS Tobacco use date assessed: 04/07/25 Dental Screening Dental Screen Date: 04/07/25 Did you have a dental visit in the last 12 months?: Yes Did you have a dental problem in the last 6 months where you did not have access to dental care?: No Was dental information given to patient?: Patient has dentist HPI HPI Comments History of Present Illness Details The patient is a 55-year-old male presenting for a wellness visit and management of chronic conditions. Hypertension has been noted with a recent reading of 140/68 mmHg, potentially influenced by dietary sodium intake from adobo seasoning. The patient is adherent to antihypertensive medications, including amlodipine and losartan with hydrochlorothiazide. Type 2 Diabetes Mellitus is managed with metformin and Ozempic, with recent blood glucose levels at 156 mg/dL and an A1c of 8.7%. The patient has started Ozempic at 0.5 mg with plans to increase to 1 mg to improve glycemic control and assist with weight management. Hyperlipidemia is being managed with rosuvastatin, as atorvastatin previously caused elevated liver enzymes. The patient is also taking vitamin D supplements. Gastroesophageal Reflux Disease is treated with omeprazole. The patient has a history of obesity, and weight management is a focus of the current treatment plan. Preventative care includes a pneumococcal vaccination previously received at age 47, with a new PCV20 vaccine discussed but declined. The patient also declined the influenza vaccine. The patient has a significant family history of diabetes and hypertension, with both parents affected. He has abstained from alcohol, tobacco, and drugs since 2001. [facility], [facility] Medical History Mixed hyperlipidemia Mild asthma Hypovitaminosis D Seasonal allergies Anxiety Pain, elbow GERD (gastroesophageal reflux disease) Diabetes HTN (hypertension) Surgical History History of third molar tooth extraction Family History Father Diabetes Hypertension Mother Hypertension Diabetes Brother Cancer Social History Housing: Apartment Alcohol intake: former Year quit: 2001 Patient Tobacco Use Status: Former Tobacco user Tobacco use type: Cigarette e-Cigarette/Vaping Use: Never Used Second Hand Smoke Exposure: Yes Substance Use Type: Former Substance User service: No Current occupational status: unemployed Current occupation: rt handed Current occupational exposures/hazards: No Cognitive needs: No Hearing needs: No Vision needs: Yes Questionnaire PHQ-9 Over the last 2 weeks, how often have you been bothered by any of the following problems? 1. Little interest or pleasure in doing things: not at all 2. Feeling down, depressed, or hopeless: not at all 3. Trouble falling or staying asleep, or sleeping too much: not at all 4. Feeling tired or having little energy: several days 5. Poor appetite or overeating: several days 6. Feeling bad about yourself - or that you are a failure or have let yourself or your family down: not at all 7. Trouble concentrating on things, such as reading the newspaper or watching television: not at all 8. Moving or speaking so slowly that other people could have noticed. Or the opposite - being so fidgety or restless that you have been moving around a lot more than usual: not at all 9. Thoughts that you would be better off or of hurting yourself in some way: not at all Total score: 2 Depression Screening Interpretation: Negative Depression Screening Done: Yes 20206 - PHQ-9 Billing: Yes Source: Developed by Drs. Rory Brown, Syeda Herron, Sher Bonilla and colleagues, with an educational gagan from [employer]. Thrive Questionnaire Date Thrive assessed: 12/02/24 I am a: Patient What is your living situation today?: I have a steady place to live Within the past 12 months, did the food you bought not last and you didn't have the money to get more?: I choose not to answer this question Within the past 12 months, did you worry whether your food would run out before you got money to buy more?: I choose not to answer this question Do you have trouble paying for medicines?: No Do you have trouble getting transportation to medical appointments?: No Do you have trouble paying your heating and electricity bill?: No Do you have trouble taking care of your child, family member or friend?: No Do you have trouble with day-to-day activities such as bathing, preparing meals, shopping, managing finances, etc.?: No Are you currently unemployed and looking for a job?: No Are you interested in more education?: No Please select the resources that you would like help with: None Currently or been in a relationship where the following occur: No concerns reported THRIVE Score: 0 SCHUYLER-7 AMB Questionnaire SCHUYLER-7 Date SCHUYLER - 7 assessed: 08/04/24 Feeling nervous, anxious, or on edge: 0 = Not at all Not being able to stop or control worryin = Not at all Worrying too much about different things: 1 = Several days Trouble relaxin = Not at all Being so restless that it is hard to sit still: 0 = Not at all Becoming easily annoyed or irritable: 0 = Not at all Feeling afraid as if something awful might happen: 0 = Not at all Total SCHUYLER-7 score (0-4 normal; 5-9 mild; 10-14 moderate; 15-21 severe): 1 Source: Developed by Drs. Rory Brown, Syeda Herron, Sher Bonilla and colleagues, with an educational gagan from [employer]. SCHUYLER-7 Assessment Billing SCHUYLER-7 Assessment Tool: SCHUYLER-7 Assessment 54109 Review of Systems Const All systems reviewed & are unremarkable except as noted in HPI and below Card Denies chest pain at rest, Denies chest pain with activity, Denies edema, Denies irregular heart rhythm, Denies claudication, Denies dyspnea, Denies dyspnea on exertion, Denies orthopnea, Denies paroxysmal nocturnal dyspnea and Denies slow heart rate Resp Denies cough, Denies dyspnea and Denies dyspnea on exertion GI Denies abdominal pain, Denies change in bowel habits, Denies excessive flatus, Denies nausea and Denies vomiting Neuro Denies lack of coordination Physical exam (Primary Care) Vital Signs: Last Vital Signs Temp 97.3 F 04/07/25 16:24 Pulse 71 04/07/25 16:24 Resp 18 04/07/25 16:24 BP 140/68 H 04/07/25 16:24 Pulse Ox 97 04/07/25 16:24 Oxygen Delivery Method Room Air 04/07/25 16:24 BMI result Body Mass Index 34.3 BMI Assessment/Plan discussion: High BMI High, discussed plan: lifestyle, weight reduction, dietary and physical activity Tobacco/Smoking Status: Tobacco use Status Tobacco use date assessed 04/07/25 04/07/25 16:32 Patient Tobacco Use Status Former Tobacco user 04/07/25 16:32 Tobacco use type Cigarette 04/07/25 16:32 e-Cigarette/Vaping Use Never Used 04/07/25 16:32 PHQ-9: PHQ-9 Score PHQ-9: Total score 2 04/07/25 16:44 Depression Screening Interpretation: Negative Thrive Assessment: Date of Thrive Assessment Date Thrive assessed 12/02/24 04/07/25 16:32 Currently or been in a relationship where the following occur: No concerns reported HENSD Head: Yes normal to inspection, Yes normocephalic and Yes atraumatic Ears: external ears normal Eyes General: appearance normal, both eyes and all related structures Eyelids: Yes eyelids normal Conjunctivae: conjunctivae normal Neck Neck: Yes normal visual inspection and Yes supple Resp Effort & Inspection: normal respiratory effort Auscultation: clear to auscultation bilaterally Cardio Jugular venous distension: no JVD Rate: regular rate Rhythm: regular rhythm Heart sounds: S1 normal heart sound present and S2 normal heart sound present GI Inspection: Yes normal to inspection Palpation (GI): Soft to palpation and nontender Auscultation: normal bowel sounds Skin General skin exam: no rashes or lesions noted Neuro General: no focal motor deficits Extrem General: Yes full ROM Psych Appearance: grossly normal Results AMB Hemoglobin A1c AMB Hemoglobin A1c 7.5 % Last Edit by HIRO Allan on 04/07/25 17 :10 Coding Level of Care Code Est Pt Prev Care 40-64y(42706) Diagnoses Physical exam Z00.00 Type 2 diabetes mellitus with hyperglycemia, without long-term current use of insulin E11.65 Diabetes mellitus type: type 2 Diabetes mellitus residential insulin use: without residential use Diabetes mellitus complication status: with hyperglycemia Additional Codes PHQ-9 - 68882 - PHQ-9 Billing: Yes ([id number]) SCHUYLER-7 Assessment Billing - SCHUYLER-7 Assessment Tool: SCHUYLER-7 Assessment 17175 ([id number]) Time Spent (min) 30 Assessment & Plan Assessment & Plan (1) Physical exam: Code(s): Z00.00 - Encounter for general adult medical examination without abnormal findings Category: Medical (2) Diabetes: Comment: fbs usually 150-170 Code(s): E11.9 - Type 2 diabetes mellitus without complications Category: Medical Qualifiers: Diabetes mellitus type: type 2 Diabetes mellitus terminal worker insulin use: without residential use Diabetes mellitus complication status: with hyperglycemia Qualified Code(s): E11.65 - Type 2 diabetes mellitus with hyperglycemia Plan Plan Patient was informed and verbally consented to the use of an ambient scribe for clinic note documentation during this visit. 1. Hypertension The patient's hypertension is currently managed with amlodipine and losartan with hydrochlorothiazide. Blood pressure was noted to be slightly elevated at 140/68 mmHg, possibly due to dietary sodium intake. The plan includes regular m onitoring of blood pressure and adherence to medication. 2. Type 2 Diabetes Mellitus The patient is managing diabetes with metformin and Ozempic, with a recent blood glucose level of 156 mg/dL and an A1c of 8.7%. The plan is to increase Ozempic to 1 mg to improve glycemic control and assist with weight management. 3. Hyperlipidemia Hyperlipidemia is managed with rosuvastatin, as atorvastatin previously caused elevated liver enzymes. 4. Gastroesophageal Reflux Disease Gastroesophageal Reflux Disease is treated with omeprazole. 5. Obesity Obesity management includes the use of Ozempic to aid in weight reduction. 6. Preventative Care: Pneumococcal Vaccination The patient was offered the PCV20 pneumococcal vaccine but declined. Orders: Orders Lipid Panel 4 Months E78.5 - Hyperlipidemia, unspecified Vitamin D 25-OH Total 4 Months E55.9 - Vitamin D deficiency, unspecified Comprehensive [place]. Panel Fast 4 Months E11.65 - Type 2 diabetes mellitus with hyperglycemia Microalbumin, Random (w Creat) 4 Months R80.9 - Proteinuria, unspecified AMB Hemoglobin A1c Today Z13.9 - Encounter for screening, unspecified Medications: New semaglutide (Ozempic) 1 mg (0.75 mL) subcut QWEEK 3 mL 0RF 4 weeks E11.65 - Type 2 diabetes mellitus with hyperglycemia Discontinued semaglutide (Ozempic) Discontinued Reason: Patient Completed Course 0.5 mg (0.736 mL) subcut QWEEK 4 weeks 3 mL 0RF semaglutide (Ozempic) for 4 weeks Discontinued Reason: Patient Completed Course 0.25 mg (0.368 mL) subcut QWEEK 4 weeks 3 mL 0RF E11.65 - Type 2 diabetes mellitus with hyperglycemia
[2025-04-07 16:24] VITALS: BP 140/68; PULSE 71; RESP 18; TEMP 36.3; O2SAT 97; BMI 34.3
--- OUTSIDE RECORDS SUMMARY | 2025-04-07 18:37 | XMS_ITS | Clinical Summary ---
Author Organization [address] [facility] Address [address] [place] [address] Phone Care Team Providers Care Research Biologist Name Role Phone Yuly Cueva MD Primary Care Provider [phone] Allergies No known active allergies Social History [...] Health Maintenance Due Date Last Done Comments Colorectal Cancer Screening: Colonoscopy 1968 DTaP,Tdap,and Td Vaccines (1 - Tdap) 1987 Hepatitis B Vaccines (1 of 3 - 19+ 3-dose series) 1987 Pneumococcal Vaccine: 50+ Ye ars (1 of 2 - PCV) 1987 Zoster Vaccines (1 of 2) 2018 Cholesterol Screening (Lipid Panel) 04/11/2024 HIV Screening 04/11/2024 Hepatitis C Screening 04/11/2024 Social Influencers of Health Screening 04/11/2024 Depression Screening 07/02/2024 COVID-19 Vaccine (1 - 2023-2 5 season) 2025 Influenza Vaccine (#1) 2025 RSV Immunization Adult Patie nts (1 - 1-dose 75+ series) 2043 HIB Vaccines Aged Out No longer eligi [...] patient's age to complete this topic [place] [address] PLAN Care Teams Research Biologist Relationship Specialty Start Date End Date Yuly Cueva MD [address] [place] [address] , [address] [facility] D/B/A: [facility] [place], [place] PCP - General 03/14/24
== END 2025-04-07 17:03 | disposition home or self-care (01) ==
LOC: HO.HMCH 15:33
PROVIDERS: PCP Internal Medicine; Visit Provider Internal Medicine
DX: Z00.00 Encounter for general adult medical examination without abnormal findings (principal); E11.65 Type 2 diabetes mellitus with hyperglycemia; Z13.9 Encounter for screening, unspecified

== ENCOUNTER → 2025-04-07 15:32 | Outpatient (BNVA) | payer OTHER, SELFPAY | PROVIDERS: PCP Internal Medicine; Visit Provider Internal Medicine | DX: Z00.00 Encounter for general adult medical examination without abnormal findings (principal); I10 Essential (primary) hypertension; E78.5 Hyperlipidemia, unspecified; K21.9 Gastro-esophageal reflux disease without esophagitis; E11.65 Type 2 diabetes mellitus with hyperglycemia; E55.9 Vitamin D deficiency, unspecified; R80.9 Proteinuria, unspecified; E66.9 Obesity, unspecified; Z68.34 Body mass index [BMI] 34.0-34.9, adult | CPT/HCPCS: 83036; 96127; 99396 ==

== ENCOUNTER 2025-06-03 13:01 | Outpatient (AMB) | payer OTHER, SELFPAY ==
--- NOTE | 2025-06-03 13:01 | A.OFFVIS_ITS ---
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 History of Present Illness The patient is a 55 year old individual presenting for follow-up to discuss pathology results. A lesion was recently removed from the scrotum for which pathology is now available. The patient's last prostate-specific antigen (PSA) was checked in March and was normal at 1.3. Results - Pathology: The specimen removed from the scrotum was a benign polyp, and not an STD or a wart. - Labs: PSA in March was 1.3, which is normal. Plan 1. Benign Polyp Of Scrotum - No further follow-up is required for this issue. 2. Prostate Cancer Screening - Continue to monitor prostate-specific antigen (PSA). - The patient will follow up with the nurse practitioner for a one-year PSA check. 03/19/25--Here for excision of scrotal lesion PSA reviewed - 03/13/25--1.33 ng/mL Telehealth Followup to discuss path results 12/26/24 History of Present Illness - The patient is a 54-year-old male presenting with concerns of genital warts and a history of balanitis. - He states warts have been present for more than two years, with no specific inciting events noted. - The patient has a history of a balanitis, for which a cream was prescribed by his PCP, and reports no current irritation or redness in the penile area. - The patient is not circumcised, which may contribute to recurrent yeast infections, especially given his diabetic status. Results UA - negative leuks, negative blood Discussion Notes I discussed with the patient the history of genital yeast infections. We talked about the potential need for circumcision if yeast infections become recurrent due to his diabetic status. I explained the importance of a PSA test to monitor prostate health, especially given his age. The patient was informed about the need to avoid sexual activity 48 hours before the PSA test to ensure accurate results. Examination notes 1 raised irregular lesion on the scrotum differential diagnosis includes skin tag. I have discussed with the patient excision and sending tissue to pathology for definitive diagnosis. [facility] Medical History Mixed hyperlipidemia Mild asthma Hypovitaminosis D Seasonal allergies Anxiety Pain, elbow GERD (gastroesophageal reflux disease) Diabetes HTN (hypertension) Surgical History History of third molar tooth extraction Family History Father Diabetes Hypertension Mother Hypertension Diabetes Brother Cancer Social History Housing: Apartment Alcohol intake: former Year quit: 2001 Patient Tobacco Use Status: Former Tobacco user Tobacco use type: Cigarette e-Cigarette/Vaping Use: Never Used Second Hand Smoke Exposure: Yes Substance Use Type: Former Substance User service: No Current occupational status: unemployed Current occupation: rt handed Current occupational exposures/hazards: No Cognitive needs: No Hearing needs: No Vision needs: Yes Telehealth Telehealth Telehealth Platform: Telephone Location of provider rendering services: practice address Location of patient: address on file Patient Identification confirmed using: Name, : Yes Telehealth method: voice only Patient verbally consented to treatment: Yes Patient verbally consented to billing insurance company: Yes Patient informed of any privacy concerns related to visit: Yes Minutes spent on Phone/Video with Pt.: 14 Results Reviewed Results Reviewed: Collected: 03/19/25 Location: [facility] Received: 03/20/25 Diagnosis Skin, scrotum, excision: Fibroepithelial polyp. Clinical History Scrotal lesion Microscopic Description Microscopic sections reviewed. Material Received Scrotal tissue Gross Description Received in formalin labeled ?scrotal lesion? is a polypoid portion of conn-ritchie skin measuring 1.5 x 0.7 x 0.6 cm in greatest dimension. The skin surface is intact and wrinkled. The base of the specimen reveals a ritchie-white resection site measuring 0.3 cm in diameter that is unremarkable. The resection site is inked blue. The specimen is bisected and entirely submitted for microscopic examination, 2 pieces in cassette A. ([facility]) Assessment & Plan Assessment & Plan (1) Screening PSA (prostate specific antigen): Code(s): Z12.5 - Encounter for screening for malignant neoplasm of prostate Category: Medical (2) Scrotal lesion: Code(s): N50.9 - Disorder of male genital organs, unspecified Category: Medical Plan Plan 1. Benign Polyp Of Scrotum - No further follow-up is required for this issue. 2. Prostate Cancer Screening - Continue to monitor prostate-specific antigen (PSA). - The patient will follow up with the nurse practitioner for a one-year PSA check. Patient Instructions: The patient had an opportunity to ask questions regarding treatment plan. The patient expressed understanding and agreement with the above treatment plan. The patient is aware they should contact our office by phone for worsening of their current condition or the appearance of new symptoms. Compliance is encouraged with any medications and followup testing that is ordered. It is a privilege to be allowed the opportunity to participate in the urologic care of your patient. If you have any questions or concerns regarding treatment for the above conditions please do not hesitate to contact me. The office telephone contact is [phone]. This note is constructed in part using voice recognition software. While every effort has been made to ensure accuracy aboriginal community council member errors may have been included. Yours sincerely, Melissa Strickland MD Scribe Plan - Not visible on output: Patient was informed and verbally consented to the use of an ambient scribe for clinic note documentation during this visit. Coding Level of Care Code Tele Est Pt Level 3 (83470) Diagnoses Screening PSA (prostate specific antigen) Z12.5 Scrotal lesion N50.9
--- OUTSIDE RECORDS SUMMARY | 2025-06-03 15:30 | XMS_ITS | Clinical Summary ---
Author Organization [address] [facility] Address [address] [place] [address] Phone Care Team Providers Care Blood Bank Business Manager Name Role Phone Yuly Cueva MD Primary Care Provider [phone] Allergies No known active allergies Social History [...] ars (1 of 2 - PCV) 1987 RSV Immunization Adult Patie nts (1 - Risk 50-74 years 1-dose series) 2018 Zoster Vaccines (1 of 2) 2018 Cholesterol Screening (Lipid Panel) 04/11/2024 HIV Screening 04/11/2024 Hepatitis C Screening 04/11/2024 Social Influencers of Health Screening 04/11/2024 Depression Screening 07/02/2024 COVID-19 Vaccine (1 - 2024-2 6 season) 2025 Influenza Vaccine (#1) 2025 HIB [...] patient's age to complete this topic Insurance [place] [address] PLAN Care Teams Blood Bank Business Manager Relationship Specialty Start Date End Date Yuly Cueva MD [address] [place] [address] , [address] [facility] D/B/A: [facility] [place], [place] PCP - General 03/14/24
== END 2025-06-03 14:49 | disposition home or self-care (01) ==
LOC: HO.HUSH 13:01
PROVIDERS: PCP Internal Medicine; Visit Provider Urology
DX: Z12.5 Encounter for screening for malignant neoplasm of prostate (principal); N50.9 Disorder of male genital organs, unspecified
CPT/HCPCS: 99213